=== PATIENT | male | born 1995 | race Caucasian/White ===

== ENCOUNTER 2019-03-05 16:44 | Emergency (ER) | payer SELFPAY ==
[2019-03-05 16:35] VITALS: BP 150/82; PULSE 80; RESP 20; O2SAT 98; BMI 31.4
[2019-03-05 16:47] VITALS: TEMP 36.4
--- NOTE | 2019-03-05 16:50 | PC.NURSE ---
pt appears to be under the influence of alcohol. nurse asked pt and pt denies any substance use. pt is very slow to respond/answer questions but still answers appropriately.
--- NOTE | 2019-03-05 16:51 | CTR_ITS ---
PROCEDURE INFORMATION: Exam: CT Head Without Contrast Exam date and time: 03/05/2019 5:09 PM Age: 23 years old Clinical indication: Pain; Headache; Migraine; Aura effect not specified; Other: Unknown TECHNIQUE: Imaging protocol: Computed tomography of the head without contrast. Total DLP: 869.63 mGy-cm Radiation optimization: All CT scans at this facility use at least one of these dose optimization techniques: automated exposure control; mA and/or kV adjustment per patient size (includes targeted exams where dose is matched to clinical indication); or iterative reconstruction. COMPARISON: No relevant prior studies available. FINDINGS: Brain: There are prominent perivascular spaces inferior to the lentiform nuclei. Ventricles: Normal. No ventriculomegaly. Bones/joints: Unremarkable. No acute fracture. Sinuses: Visualized sinuses are unremarkable. No fluid levels. Mastoid air cells: Visualized mastoid air cells are well aerated. Soft tissues: Unremarkable. CT/CT head wo con* [id number] IMPRESSION: No acute intracranial findings. Radiation Dose CTDIVOL = (mGy): DLP = 869.63 (mGy-cm)
--- NOTE | 2019-03-05 16:51 | XRR_ITS ---
PROCEDURE INFORMATION: Exam: XR Chest, 1 View Exam date and time: 03/05/2019 5:17 PM Age: 23 years old Clinical indication: Patient HX: Cough x2 days, PT is a current smoker, PT denies surg HX, PT denies HX of CA. TECHNIQUE: Imaging protocol: XR of the chest Views: 1 view. COMPARISON: CR Chest 2 views* [id number] 08/29/2018 3:42 PM FINDINGS: Lungs: Unremarkable. No consolidation. Pleural space: Unremarkable. No pleural effusion. No pneumothorax. Heart/Mediastinum: Unremarkable. No cardiomegaly. Bones/joints: Unremarkable. XR/XR chest 1V portable [id number] IMPRESSION: No acute findings.
--- NOTE | 2019-03-05 16:56 | ED_ITS ---
Entered by Stephon Warner LPN, acting as scribe for Sugar Sandhu DO HPI - Headache General: Chief Complaint: Headache Stated Complaint: migraine Time Seen by Provider: 03/05/19 16:51 Source: patient Mode of arrival: ambulatory Limitations: no limitations History of Present Illness: HPI Narrative: 23 yo male with h/o migraines presents via EMS c/o abrupt onset headache that started this evening. He reports this is worse than his usual migraine, but is similar. He has been out in the cold this evening, states he has just been walking around. Also reporting anxious shakes . EMS reports they picked him up that police station, he had walked there. 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.) Onset description: suddenly Location: generalized Severity: moderate Quality & Timing: similar to previous headaches Relieving factors: nothing Associated symptoms: Deny chest pain, fever(s), malaise, nausea, rash or vomiting Review of Systems Const: Reports: chills; Denies: fever, change in appetite or malaise Eyes: Denies: change in vision, blurry vision, eye discharge or eye redness ENMT: Denies: throat pain, uvular edema, painful swallowing, mouth pain, dental pain, nasal congestion or facial/sinus pain Card: Denies: chest pain, irregular heart rhythm, swelling of feet/ankles, shortness of breath on exertion, shortness of breath when lying down or leg pain with exertion Resp: Denies: shortness of breath, productive cough, wheezing or coughing up blood GI: Denies: abdominal pain, nausea, vomiting, diarrhea, constipation or fecal incontinence : Denies: flank pain, painful urination, urinary frequency, urinary urgency or urinary hesitancy Musc: Denies: neck pain, back pain, extremity pain or extremity swelling Skin/Breast: Reports: other (reddened skin to nose and hands- has been out in the cold); Denies: rash, itching, redness, yellow skin or dry skin Neuro: Reports: headache; Denies: numbness in extremities, weakness in extremities, changes in sensation, lack of coordination or difficulty walking Psych: Denies: anxiety, depression, mood swings, panic attacks, sleeping less, suicidal ideation or homicidal ideation Endo: Denies: excessive urination, excessive thirst or tired all the time Micky/Lymph: Denies: easy bruising, petechiae or enlarged lymph nodes All/Imm: Denies: hives, throat swelling, facial swelling, acute wheezing or se asonal allergies PFSH ED PFSH: Statuses (acute, chronic, etc) shown below reflect problem list status as previously entered and may not be historically accurate Social History Smoking and tobacco status: current every day smoker Physical Exam Const: COMMON NORMALS: no apparent distress, oriented x3, no limitations, healthy appearing, alert and well nourished GENERAL APPEARANCE: cooperative, comfortable, well kempt and well developed ORIENTATION/CONSCIOUSNESS: Yes awake, Yes oriented to person, Yes oriented to place and Yes oriented to time HENMT: COMMON NORMALS: normocephalic, head/scalp atraumatic, hearing grossly normal bilaterally, external ears normal, EAC's normal, TM's normal bilaterally, external nose normal, nasal mucous membranes and turbinates normal, moist oral mucous membranes, oropharynx normal, dentition normal and gingiva normal HEAD & SCALP: normal to inspection, normocephalic and atraumatic FACE & SINUS: normal facial exam NOSE: external nose normal and nasal mucous membranes and turbinates normal EXTERNAL EAR: Yes external ears normal EXTERNAL AUDITORY CANAL: EAC's normal TYMPANIC MEMBRANE: TM's normal bilaterally MOUTH: oral and palatal mucosa normal, lip normal and tongue normal THROAT: no uvular edema Eye: COMMON NORMALS: PERRL, EOMs intact bilaterally, conjunctivae normal, no scleral icterus and normal visual parker by confrontation GENERAL EYE: normal appearance of both eyes and normal light reflex VISUAL ACUITY: Yes acuity normal ALIGNMENT: Yes alignment normal PERIORBITAL: periorbital findings normal EYELID: eyelids normal CONJUNCTIVA: Yes conjunctivae normal SCLERA: sclerae normal PUPIL: Yes PERRL and Yes accommodation reflex normal DIRECT OPHTHALMOSCOPY: Yes normal light reflex Neck/C-Spine: COMMON NORMALS: full ROM, no lymphadenopathy, supple, no meningeal signs and no JVD GENERAL: Yes normal visual inspection CAROTIDS: Yes normal carotid upstroke CERVICAL SPINE: Yes cervical ROM normal Lymph: LYMPHATIC: no lymphadenopathy noted Chest: COMMONS NORMALS: inspection of chest normal CHEST: Yes symmetrical chest wall rise Resp: COMMON NORMALS: normal respiratory effort, no retractions, no use of accessory muscles and clear to auscultation bilaterally EFFORT & INSPECTION: Yes able to speak in complete sentences and Yes symmetric chest movement AUSCULTATION: clear to auscultation bilaterally Cardio: COMMON NORMALS: no JVD, regular rate, regular rhythm, S1 normal heart sound, S2 normal heart sound, no murmurs and peripheral pulses 2+ throughout RATE: regular rate RHYTHM: regular rhythm HEART SOUNDS: S1 normal and S2 normal PERIPHERAL PULSES: pulses 2+ throughout GI: COMMON NORMALS: normal to inspection, nondistended, normoactive bowel sounds and non-tender : COMMON NORMALS: Yes no CVA tenderness BLADDER/KIDNEY EXAM: Yes no CVA tenderness Back/Pelvis: COMMON NORMALS: no CVA tenderness, thoracic and lumbar spine normal to inspection, no thoracic nor lumbar tenderness and thoraco-lumbar ROM normal Extremity: COMMON NORMALS: normal to inspection, full ROM, normal capillary refill, no calf tenderness and no pedal edema Neuro: COMMON NORMALS: oriented x3, CN's II-XII intact bilaterally, moves all extremities, no focal motor deficits, no sensory deficits noted and gait normal SENSORIUM/ORIENTATION: Yes alert, Yes oriented to person, Yes oriented to place and Yes oriented to time MENINGEAL SIGNS: Yes no meningeal signs SPEECH: speech normal GAIT: Yes normal gait MOTOR EXAM: strength 5/5 throughout, no pronator drift and no tremor noted Psych: COMMON NORMALS: mental status grossly normal, thought process normal, cooperative, affect normal, speech normal and activity/motor behavior normal APPEARANCE: Yes well kempt SPEECH: Yes normal speech THOUGHT PROCESS: normal thought process THOUGHT CONTENT: Yes normal thought content INSIGHT: insight good Skin: COMMON NORMALS: no rashes or lesions noted, no wounds, skin turgor normal and no jaundice NARRATIVE SKIN EXAM: nose and hands noted to be red, no break in skin, likely d/t walking out in the cold. GENERAL SKIN EXAM: no rashes or lesions noted and turgor normal Course ED course: improved with medications will dc home or to a friends house f applicable, if he needs a retirement we will attempt to find him retirement Vital Signs: Vital signs: Vital Signs Temperature 97.6 F 03/05/19 16:47 Pulse Rate 80 03/05/19 16:35 Respiratory Rate 20 H 03/05/19 16:35 Blood Pressure 150/82 01/11/20 16:35 Pulse Oximetry 98 03/05/19 16:35 MDM - Headache Lab Data: Attestation: I reviewed the patient's lab results. Labs: Lab Results 03/05/19 03/05/19 Range/Units 17:04 17:04 WBC 13.2 H (4.0-10.0) 10^3/ uL RBC 5.26 (4.1-5.3) 10^6/u L Hgb 15.4 (11.7-16.6) g/dL Hct 45.3 (42.0-52.0) % MCV 86.1 (80-94) fL MCH 29.3 (28.0-34.0) pg MCHC 34.0 (30.0-36.0) g/dL RDW 12.8 (12.1-15.1) % Plt Count 324 (130-400) 10^3/c mm MPV 10.0 (7.4-10.4) fL Neut % (Auto) 55.5 % Lymph % (Auto) 33.3 % [place] % (Auto) 7.1 % Eos % (Auto) 3.4 % Baso % (Auto) 0.4 % Neut # (Auto) 7.3 (1.8-7.7) 10^3/u L Lymph # (Auto) 4.4 (0.8-4.8) 10^3/u L [place] # (Auto) 0.9 (0.2-0.9) 10^3/u L Eos # (Auto) 0.5 (0.0-0.8) 10^3/u L Baso # (Auto) 0.1 (0.0-0.1) 10^3/u L Nucleated RBC % (a uto) 0 % Nucleated RBCs # 0.0 /100WBC Sodium 136 (136-145) mmol/L Potassium 4.0 (3.5-5.1) mmol/L Chloride 95 L (98-107) mmol/L Carbon Dioxide 28 (22-29) mmol/L Anion Gap 17.0 (5-19) BUN 14 (6-20) mg/dL Creatinine 0.8 (0.7-1.2) mg/dL GFR Calculation 118.8 (90-130) mL/min Glucose 111 H (74-109) mg/dL Calcium 10.5 H (8.6-10.0) mg/Dl Total Bilirubin 0.7 (0.15-1.2) mg/dL AST 23 (0-40) U/L ALT 24 (0-41) U/L Alkaline Phosphata se 106 (40-130) IU/L Total Protein 8.2 (6.6-8.7) g/dL Albumin 5.1 (3.5-5.2) g/dL Globulin 3.1 (1.3-4.6) g/dL Discharge Plan Discharge Patient Disposition: Home, Self-Care Clinical Impression: Migraine Qualifiers: Migraine type: without aura Status migrainosus presence: without status migrainosus Intractability: not intractable Qualified Code(s): G43.009 - Migraine without aura, not intractable, without status migrainosus Condition: Stable Prescriptions: No Action No Known Home Medications RF: 0 Discharge Diet: Usual diet Discharge Activity: Resume usual activity Patient Instructions: Acute Headache (ED) Coding Level of Care Code ED [employer] Commissioner for Ethan Olvera Exam Problem Focused The documentation recorded by the Timmy houston Dani Elizabeth, LPN, accurately reflects the service I personally performed and the decisions made by , Sugar Sandhu DO
[2019-03-05 17:10] LABS: Basophils # 0.1 10^3/uL (0.0-0.1); Basophils % 0.4 %; Eosinophils # 0.5 10^3/uL (0.0-0.8); Eosinophils % 3.4 %; Hematocrit 45.3 % (42.0-52.0); Hemoglobin 15.4 g/dL (11.7-16.6); Lymphocytes # 4.4 10^3/uL (0.8-4.8); Lymphocytes % 33.3 %; Mean Corpuscular Hemoglobin 29.3 pg (28.0-34.0); Mean Corpuscular Volume 86.1 fL (80-94); Monocytes # 0.9 10^3/uL (0.2-0.9); Monocytes % 7.1 %; Neutrophils # 7.3 10^3/uL (1.8-7.7); Neutrophils % 55.5 %; Nucleated Red Blood Cells % 0 %; Platelet Count 324 10^3/cmm (130-400); Red Blood Count 5.26 10^6/uL (4.1-5.3); Red Cell Distribution Width 12.8 % (12.1-15.1); White Blood Count 13.2 10^3/uL (4.0-10.0)
--- NOTE | 2019-03-05 17:17 | PC.NURSE ---
pt transported to ct by stretcher with tech
[2019-03-05 17:26] LABS: Alanine Aminotransferase 24 U/L (0-41); Albumin Level 5.1 g/dL (3.5-5.2); Alkaline Phosphatase 106 IU/L (40-130); Aspartate Amino Transferase 23 U/L (0-40); Blood Urea Nitrogen 14 mg/dL (6-20); Calcium 10.5 mg/Dl (8.6-10.0); Carbon Dioxide 28 mmol/L (22-29); Chloride 95 mmol/L (98-107); Globulin 3.1 g/dL (1.3-4.6); Glomerular Filtration Rate 118.8 mL/min (90-130); Glucose 111 mg/dL (74-109); Sodium 136 mmol/L (136-145); Total Bilirubin 0.7 mg/dL (0.15-1.2); Total Protein 8.2 g/dL (6.6-8.7)
[2019-03-05] MEDS: metoclopramide 5 mg/mL SDV 2 mL 10 MG IV (17:54)
[2019-03-05] MEDS: ketorolac 30 mg/mL INJ IVP (17:54)
[2019-03-05] MEDS: diphenhydrAMINE 50 mg/mL SDV 1mL IVP (17:55)
[2019-03-05] MEDS: sodium chloride 0.9% 1,000 ML 999 ML IV (17:55)
[2019-03-05 18:37] VITALS: BP 135/75; PULSE 96; RESP 20
== END 2019-03-05 18:44 | disposition home or self-care (01) ==
LOC: ER 18:48
PROVIDERS: Emergency Provider Emergency Medicine
DX: G43.009 Migraine without aura, not intractable, without status migrainosus (principal); F17.210 Nicotine dependence, cigarettes, uncomplicated
CPT/HCPCS: 36415; 70450; 71045; 80053; 85025; 96360; 96374; 99281; A9270; J1200; J1885; J2765; J7030

== ENCOUNTER 2019-03-06 17:37 | Emergency (ER) | payer SELFPAY ==
[2019-03-06 17:44] VITALS: BP 146/81; PULSE 89; RESP 16; O2SAT 99
--- NOTE | 2019-03-06 18:21 | ED_ITS ---
Entered by Stephon Warner LPN, acting as scribe for Joseph Han DO Mar 06, 2019 17:37 HPI - General Adult General: Chief complaint: General Medical Stated complaint: GENERAL SICKNESS Time Seen by Provider: 03/06/19 18:21 PFSH ED PFSH: Statuses (acute, chronic, etc) shown below reflect problem list status as previously entered and may not be historically accurate Social History Smoking and tobacco status: current every day smoker Course Vital Signs: Vital signs: Vital Signs Pulse Rate 89 03/06/19 17:44 Respiratory Rate 16 03/06/19 17:44 Blood Pressure 146/81 03/06/19 17:44 Pulse Oximetry 99 03/06/19 17:44 Discharge Plan Discharge Prescriptions: No Action Unable to Assess RF: 0 Coding Level of Care Code 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
--- NOTE | 2019-03-06 18:22 | ED_ITS ---
Entered by Stephon Warner LPN, acting as scribe for GuilleJoseph DO Jovon Mar 06, 2019 17:37 HPI - General Adult General: Chief complaint: General Medical Stated complaint: GENERAL SICKNESS Time Seen by Provider: 03/06/19 18:21 Source: patient Mode of arrival: EMS Limitations: no limitations History of Present Illness: HPI narrative: 23 yo male presents stating he is here because his hands are cold and he is getting nervous convulsions everywhere . He reports fever, it was up there, I can feel it . He reports cough. He was brought in by EMS, picked up at the police station, was not in custody. When asked if he has been depressed he states I am feeling down due to some rehtorical stuff . He as been worried. He denies thoughts of harming himself or others. He states he has had out of body experiences . He does smoke cigarettes. Denies alcohol or drug use. Onset (ago): day(s) (onset today) Severity: mild Associated symptoms: Deny chest pain, confusion, dyspnea, headache(s), nausea, rash, palpitations or vomiting Review of Systems Const: Denies: fever or chills Eyes: Denies: change in vision or blurry vision ENMT: Denies: painful swallowing, swelling of lips/tongue, bleeding gums, dental pain, Change in hearing, nose bleeds, post nasal drip or facial/sinus pain Card: Denies: chest pain, palpitations, irregular heart rhythm, edema, swelling of feet/ankles, shortness of breath on exertion or shortness of breath when lying down Resp: Denies: shortness of breath, productive cough, non-productive cough or wheezing GI: Denies: abdominal pain, nausea, vomiting, rectal pain, blood in stool or black tarry stool : Denies: difficulty urinating, painful urination, urinary frequency, urinary urgency or blood in urine Musc: Denies: neck pain, back pain, redness or joint warmth Skin/Breast: Denies: rash, itching or redness Neuro: Denies: headache, dizziness, vertigo, confusion or seizure-like activity Psych: Reports: depression; Denies: anxiety, suicidal ideation or homicidal ideation PFSH ED PFSH: Statuses (acute, chronic, etc) shown below reflect problem list status as previously entered and may not be historically accurate Social History Smoking and tobacco status: current every day smoker Physical Exam Const: COMMON NORMALS: alert GENERAL APPEARANCE: well developed ORIENTATION/CONSCIOUSNESS: Yes awake, Yes oriented to person, Yes oriented to place and Yes oriented to time HENMT: COMMON NORMALS: normocephalic, external ears normal, external nose normal and moist oral mucous membranes HEAD & SCALP: normocephalic; no scalp tenderness FACE & SINUS: normal facial exam NOSE: external nose normal and no nasal discharge EXTERNAL EAR: Yes external ears normal MOUTH: tongue normal THROAT: posterior oropharynx normal; no peritonsillar mass Eye: COMMON NORMALS: PERRL, EOMs intact bilaterally and conjunctivae normal EYELID: eyelids normal CONJUNCTIVA: Yes conjunctivae normal PUPIL: Yes PERRL Neck/C-Spine: COMMON NORMALS: full ROM GENERAL: No tracheal deviation CERVICAL SPINE: Yes normal cervical lordosis, No cervical spine tenderness, No step off deformity, No paracervical muscle tenderness and No paracervical muscle spasm Chest: COMMONS NORMALS: inspection of chest normal CHEST: Yes symmetrical chest wall rise and No tenderness Resp: COMMON NORMALS: clear to auscultation bilaterally EFFORT & INSPECTION: No tachypneic, No respiratory distress, No retractions, No uses accessory muscles and No tracheal deviation AUSCULTATION: clear to auscultation bilaterally, no rhonchi, no wheezes and lung sounds not diminished Cardio: COMMON NORMALS: regular rate and regular rhythm RATE: regular rate RHYTHM: regular rhythm HEART SOUNDS: no murmurs PERIPHERAL PULSES: radial pulses present GI: INSPECTION: No abdominal distension AUSCULTATION: No hyperactive bowel sounds and No hypoactive bowel sounds PALPATION: No tender, No guarding and No rigid PERCUSSION: no dullness to percussion and no tympanic to percussion : COMMON NORMALS: Yes no CVA tenderness BLADDER/KIDNEY EXAM: Yes no CVA tenderness Back/Pelvis: COMMON NORMALS: no CVA tenderness PELVIS: Yes no pain with anterior-posterior compression and Yes no pain with lateral compression Neuro: SENSORIUM/ORIENTATION: Yes alert, Yes oriented to person, Yes oriented to place and Yes oriented to time Psych: COMMON NORMALS: mental status grossly normal and speech normal SPEECH: Yes normal speech OTHER: obvious loose associations Skin: COMMON NORMALS: no rashes or lesions noted GENERAL SKIN EXAM: no rashes or lesions noted Course ED course: Still a bit unclear why this patient presented to the emergency department. He has some loose associations. This does not appear to be due to substance abuse. I suspect he has organic psychiatric disease. His laboratory is not terribly abnormal. His urine drug and alcohol screens are negative. He does have some very mild cold exposure to his hands. I suspect he is homeless. He was given food. He will be discharged. He denied hallucinations, thoughts of harming himself or others Vital Signs: Vital signs: Vital Signs Temperature 97.9 F 03/06/19 20:42 Pulse Rate 91 03/06/19 20:47 Respiratory Rate 16 03/06/19 20:47 Blood Pressure 126/69 03/06/19 20:47 Pulse Oximetry 97 03/06/19 20:47 MDM - General Adult Lab Data: Labs: Lab Results 03/06/19 03/06/19 03/06/19 Range/Units 18:46 18:46 19:40 WBC 10.2 H (4.0-10.0) 10^3/ uL RBC 5.04 (4.1-5.3) 10^6/u L Hgb 14.8 (11.7-16.6) g/dL Hct 43.4 (42.0-52.0) % MCV 86.1 (80-94) fL MCH 29.4 (28.0-34.0) pg MCHC 34.1 (30.0-36.0) g/dL RDW 12.9 (12.1-15.1) % Plt Count 277 (130-400) 10^3/c mm MPV 10.2 (7.4-10.4) fL Neut % (Auto) 58.6 % Lymph % (Auto) 32.2 % [place] % (Auto) 6.4 % Eos % (Auto) 2.3 % Baso % (Auto) 0.4 % Neut # (Auto) 6.0 (1.8-7.7) 10^3/u L Lymph # (Auto) 3.3 (0.8-4.8) 10^3/u L [place] # (Auto) 0.7 (0.2-0.9) 10^3/u L Eos # (Auto) 0.2 (0.0-0.8) 10^3/u L Baso # (Auto) 0.0 (0.0-0.1) 10^3/u L Nucleated RBC % (a uto) 0 % Nucleated RBCs # 0.0 /100WBC Sodium 148 H (136-145) mmol/L Potassium 4.2 (3.5-5.1) mmol/L Chloride 105 (98-107) mmol/L Carbon Dioxide 27 (22-29) mmol/L Anion Gap 20.2 H (5-19) BUN 13 (6-20) mg/dL Creatinine 0.9 (0.7-1.2) mg/dL GFR Calculation 103.7 (90-130) mL/min Glucose 88 (74-109) mg/dL Calcium 9.9 (8.6-10.0) mg/Dl Total Bilirubin 0.6 (0.15-1.2) mg/dL AST 19 (0-40) U/L ALT 20 (0-41) U/L Alkaline Phosphata se 96 (40-130) IU/L Creatine Kinase 110 (39-308) U/L Total Protein 7.4 (6.6-8.7) g/dL Albumin 4.7 (3.5-5.2) g/dL Globulin 2.7 (1.3-4.6) g/dL Urine Color Yellow (Yellow) Urine Appearance Clear (CLEAR) Urine pH 5 (5-7) Ur Specific Gravit y 1.025 (1.005-1.030) Urine Protein Neg (Negative) Urine Glucose (UA) Norm (Normal) Urine Ketones Negative (Negative) Urine Occult Blood Neg (Negative) Urine Nitrate Negative (Negative) Urine Bilirubin Neg (NEGATIVE) Urine Urobilinogen Norm (Negative) mg/dL Ur Leukocyte Carmina ase Negative (Negative) Salicylates < 0.3 L (3-10) mg/dL Urine Opiates Scre en (Negative) ng/mL Acetaminophen < 5.0 L (10-30) ug/mL Ur Barbiturates Sc reen (Negative) ng/mL Ur Phencyclidine S crn (Negative) ng/mL Ur Amphetamines Sc reen (Negative) ng/mL U Benzodiazepines Scrn (Negative) ng/mL Urine Cocaine Scre en (Negative) ng/mL U Marijuana (THC) Screen (Negative) ng/mL Ethyl Alcohol < 10 (0-10) mg/dL 03/06/19 Range/Units 19:40 WBC (4.0-10.0) 10^3/ uL RBC (4.1-5.3) 10^6/u L Hgb (11.7-16.6) g/dL Hct (42.0-52.0) % MCV (80-94) fL MCH (28.0-34.0) pg MCHC (30.0-36.0) g/dL RDW (12.1-15.1) % Plt Count (130-400) 10^3/c mm MPV (7.4-10.4) fL Neut % (Auto) % Lymph % (Auto) % [place] % (Auto) % Eos % (Auto) % Baso % (Auto) % Neut # (Auto) (1.8-7.7) 10^3/u L Lymph # (Auto) (0.8-4.8) 10^3/u L [place] # (Auto) (0.2-0.9) 10^3/u L Eos # (Auto) (0.0-0.8) 10^3/u L Baso # (Auto) (0.0-0.1) 10^3/u L Nucleated RBC % (a uto) % Nucleated RBCs # /100WBC Sodium (136-145) mmol/L Potassium (3.5-5.1) mmol/L Chloride (98-107) mmol/L Carbon Dioxide (22-29) mmol/L Anion Gap (5-19) BUN (6-20) mg/dL Creatinine (0.7-1.2) mg/dL GFR Calculation (90-130) mL/min Glucose (74-109) mg/dL Calcium (8.6-10.0) mg/Dl Total Bilirubin (0.15-1.2) mg/dL AST (0-40) U/L ALT (0-41) U/L Alkaline Phosphata se (40-130) IU/L Creatine Kinase (39-308) U/L Total Protein (6.6-8.7) g/dL Albumin (3.5-5.2) g/dL Globulin (1.3-4.6) g/dL Urine Color (Yellow) Urine Appearance (CLEAR) Urine pH (5-7) Ur Specific Gravit y (1.005-1.030) Urine Protein (Negative) Urine Glucose (UA) (Normal) Urine Ketones (Negative) Urine Occult Blood (Negative) Urine Nitrate (Negative) Urine Bilirubin (NEGATIVE) Urine Urobilinogen (Negative) mg/dL Ur Leukocyte Carmina ase (Negative) Salicylates (3-10) mg/dL Urine Opiates Scre en Negative (Negative) ng/mL Acetaminophen (10-30) ug/mL Ur Barbiturates Sc reen Negative (Negative) ng/mL Ur Phencyclidine S crn Negative (Negative) ng/mL Ur Amphetamines Sc reen Negative (Negative) ng/mL U Benzodiazepines Scrn Negative (Negative) ng/mL Urine Cocaine Scre en Negative (Negative) ng/mL U Marijuana (THC) Screen Negative (Negative) ng/mL Ethyl Alcohol (0-10) mg/dL Discharge Plan Discharge Patient Disposition: Home, Self-Care Clinical Impression: Chilblain Qualifiers: Encounter type: initial encounter Qualified Code(s): T69.1XXA - Chilblains, initial encounter Condition: Stable Prescriptions: No Action Unable to Assess RF: 0 Discharge Orders: Discharge Order (Routine); Ordered 03/06/19 Ordered By: Joseph Han Discharge Diet: Usual diet Discharge Activity: Resume usual activity Patient Instructions: Acute Hypothermia (ED) Activity Restrictions/Additional Instructions: You should attempt to find a warm environment to avoid further cold exposure. 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
[2019-03-06 18:52] LABS: Basophils % 0.4 %; Eosinophils # 0.2 10^3/uL (0.0-0.8); Eosinophils % 2.3 %; Hematocrit 43.4 % (42.0-52.0); Hemoglobin 14.8 g/dL (11.7-16.6); Lymphocytes # 3.3 10^3/uL (0.8-4.8); Lymphocytes % 32.2 %; Mean Corpuscular HGB Conc 34.1 g/dL (30.0-36.0); Mean Corpuscular Hemoglobin 29.4 pg (28.0-34.0); Mean Corpuscular Volume 86.1 fL (80-94); Mean Platelet Volume 10.2 fL (7.4-10.4); Monocytes # 0.7 10^3/uL (0.2-0.9); Monocytes % 6.4 %; Neutrophils % 58.6 %; Nucleated Red Blood Cells % 0 %; Platelet Count 277 10^3/cmm (130-400); Red Blood Count 5.04 10^6/uL (4.1-5.3); Red Cell Distribution Width 12.9 % (12.1-15.1); White Blood Count 10.2 10^3/uL (4.0-10.0)
[2019-03-06 19:12] LABS: Alanine Aminotransferase 20 U/L (0-41); Albumin Level 4.7 g/dL (3.5-5.2); Alkaline Phosphatase 96 IU/L (40-130); Anion Gap 20.2 (5-19); Aspartate Amino Transferase 19 U/L (0-40); Blood Urea Nitrogen 13 mg/dL (6-20); Calcium 9.9 mg/Dl (8.6-10.0); Carbon Dioxide 27 mmol/L (22-29); Chloride 105 mmol/L (98-107); Creatine Phosphokinase 110 U/L (39-308); Globulin 2.7 g/dL (1.3-4.6); Glomerular Filtration Rate 103.7 mL/min (90-130); Glucose 88 mg/dL (74-109); Potassium 4.2 mmol/L (3.5-5.1); Sodium 148 mmol/L (136-145); Total Bilirubin 0.6 mg/dL (0.15-1.2); Total Protein 7.4 g/dL (6.6-8.7)
--- NOTE | 2019-03-06 19:19 | PC.NURSE ---
Introduced self to patient and initiated vital signs. Pt states that he is having migraines, abdominal issues, and feet issues. Pt states that he goes by the name of Naveed. Pt responding slowly to questions but is speaking clearly.
[2019-03-06 19:21] LABS: Acetaminophen < 5.0 ug/mL (10-30); Alcohol Level < 10 mg/dL (0-10); Salicylate < 0.3 mg/dL (3-10)
[2019-03-06 19:47] LABS: Add Urine Microscopic? NO
[2019-03-06 19:48] VITALS: BP 133/82; PULSE 68; RESP 16; O2SAT 100
[2019-03-06 20:01] LABS: Bilirubin Urine Neg (NEGATIVE); Blood Urine Neg (Negative); Glucose Urine UA Norm (Normal); Ketones Urine Negative (Negative); Leukocyte Esterase Urine Negative (Negative); Nitrate Urine Negative (Negative); Protein Urine Neg (Negative); Specific Gravity, Urine 1.025 (1.005-1.030); Urine Appearance Clear (CLEAR); Urine Color Yellow (Yellow); Urobilinogen Urine Norm (Negative); pH Urine 5 (5-7)
[2019-03-06 20:12] LABS: Amphetamines Screen Urine Negative (Negative); Barbiturates Screen Urine Negative (Negative); Benzodiazepines Screen Urine Negative (Negative); Cocaine Screen Urine Negative (Negative); Opiate Screen Urine Negative (Negative); PCP Screen Urine Negative (Negative); THC Screen Urine Negative (Negative)
[2019-03-06 20:42] VITALS: BP 126/69; PULSE 68; RESP 18; TEMP 36.6; O2SAT 100
[2019-03-06 20:47] VITALS: BP 126/69; PULSE 91; RESP 16; O2SAT 97
== END 2019-03-06 20:50 | disposition home or self-care (01) ==
PROVIDERS: Emergency Provider Emergency Medicine
DX: T69.1XXA Chilblains, initial encounter (principal); F17.210 Nicotine dependence, cigarettes, uncomplicated
CPT/HCPCS: 80053; 80307; 81003; 82550; 85025; 99281

== ENCOUNTER 2019-03-14 07:51 | Inpatient (IN) | payer SELFPAY ==
[2019-03-14] VITALS (11 sets, daily range): BP systolic 119–146; BP diastolic 79–94; PULSE 74–107; RESP 16–20; TEMP 36.3–36.6; O2SAT 97–100; BMI 26.9
--- NOTE | 2019-03-14 08:03 | ED_ITS ---
Entered by Nilda Vaughn, acting as scribe for Zev Batista DO HPI - Abdominal Pain General: Chief Complaint: General Medical Stated Complaint: abd pain, shaking Time Seen by Provider: 03/14/19 07:56 History of Present Illness: HPI narrative: 23 yo male presnets with abd pain and shaking. Pt states that he is cough. Pt was found outside of Dr. Olson's office in the bushes. Pt seems lethargic. Pt states that he smoked marijuana last night. Pt states that he abd pain has been present for 2 days, he had chest pain that is worsened when palpated. Associated Symptoms: Denies chills, coffee ground emesis, constipation, GI cramping, diarrhea, dysuria, fever(s), heartburn, hematochezia, hematuria, hematemesis, melena, nausea, syncope and vomiting Review of Systems Const: Reports: malaise; Denies: fever, chills, body aches, fatigue or night sweats Eyes: Denies: change in vision or blurry vision ENMT: Denies: throat pain, oral sores/lesions, dental pain, nasal discharge or nasal congestion Card: Reports: chest pain; Denies: palpitations, irregular heart rhythm, edema, syncope, shortness of breath on exertion, shortness of breath when lying down or leg pain with exertion Resp: Denies: shortness of breath, productive cough, non-productive cough or wheezing GI: Reports: abdominal pain; Denies: nausea, vomiting, vomiting blood, coffee grounds in vomit, difficulty swallowing, heartburn/indigestion, diarrhea, constipation, cramping, blood in stool or black tarry stool : Denies: flank pain, difficulty urinating, painful urination, urinary frequency, urinary urgency, urinary incontinence or blood in urine Musc: Denies: joint warmth Skin/Breast: Denies: rash, itching or redness Neuro: Denies: headache, numbness in extremities, weakness in extremities, changes in sensation, lack of coordination, difficulty walking, frequent falls, dizziness, vertigo or confusion Psych: Denies: anxiety, depression, loss of interest, visual hallucinations, auditory hallucinations, suicidal ideation or homicidal ideation Endo: Denies: excessive urination, excessive thirst, tired all the time or cold intolerance Micky/Lymph: Denies: easy bruising, easy bleeding, petechiae, enlarged lymph nodes or tender lymph nodes All/Imm: Denies: acute wheezing PFSH ED PFSH: Statuses (acute, chronic, etc) shown below reflect problem list status as previously entered and may not be historically accurate Medical History Depression (Acute) Social History Smoking and tobacco status: current every day smoker Physical Exam Const: COMMON NORMALS: average body habitus GENERAL APPEARANCE: cooperative, comfortable, well developed and lethargic NUTRITIONAL APPEARANCE: not obese ORIENTATION/CONSCIOUSNESS: Yes awake and Yes lethargic HENMT: COMMON NORMALS: normocephalic, head/scalp atraumatic, EAC's normal, TM's normal bilaterally, external nose normal, moist oral mucous membranes and oropharynx normal HEAD & SCALP: normocephalic and atraumatic NOSE: external nose normal EXTERNAL AUDITORY CANAL: EAC's normal TYMPANIC MEMBRANE: TM's normal bilaterally MOUTH: oral and palatal mucosa normal, lip normal and tongue normal THROAT: posterior oropharynx normal and tonsils normal Eye: COMMON NORMALS: PERRL, EOMs intact bilaterally, conjunctivae normal and no scleral icterus CONJUNCTIVA: Yes conjunctivae normal PUPIL: Yes PERRL Neck/C-Spine: COMMON NORMALS: full ROM, no lymphadenopathy, supple, no meningeal signs and thyroid normal THYROID: thyroid normal and asymmetrical Lymph: LYMPHATIC: no lymphadenopathy noted Resp: COMMON NORMALS: normal respiratory effort, no retractions, no use of accessory muscles and clear to auscultation bilaterally AUSCULTATION: clear to auscultation bilaterally Cardio: COMMON NORMALS: regular rate and regular rhythm RATE: regular rate RHYTHM: regular rhythm HEART SOUNDS: no murmurs GI: COMMON NORMALS: normal to inspection, nondistended, normoactive bowel sounds, soft to palpation and no hepatosplenomegaly PALPATION: Yes soft and Yes no hepatosplenomegaly : COMMON NORMALS: Yes no CVA tenderness BLADDER/KIDNEY EXAM: Yes no CVA tenderness Back/Pelvis: COMMON NORMALS: no CVA tenderness LUMBAR SPINE/LOWER BACK: Yes normal to inspection Extremity: COMMON NORMALS: no clubbing, cyanosis or edema, no calf tenderness and no pedal edema Neuro: SENSORIUM/ORIENTATION: Yes lethargic MENINGEAL SIGNS: Yes no meningeal signs Psych: APPEARANCE: Yes unkempt and Yes disheveled ATTITUDE: Yes withdrawn and Yes evasive ACTIVITY/MOTOR BEHAVIOR: Yes psychomotor slowing, Yes disorganized and Yes avoids eye contact SPEECH: Yes minimal, Yes slow and Yes delayed MOOD & AFFECT: Yes depressed mood, Yes apathetic, Yes flat affect and Yes blunted affect THOUGHT PROCESS: confused THOUGHT CONTENT: No suicidality and No homicidality Skin: COMMON NORMALS: no rashes or lesions noted and skin turgor normal GENERAL SKIN EXAM: no rashes or lesions noted and turgor normal Course Vital Signs: Vital signs: Vital Signs Temperature 97.8 F 03/16/19 06:00 Pulse Rate 56 L 03/16/19 06:00 Respiratory Rate 18 03/16/19 06:00 Blood Pressure 103/58 03/16/19 06:00 Pulse Oximetry 99 03/16/19 06:00 MDM - Abdominal Pain Lab Data: Labs: Lab Results 03/14/19 03/14/19 03/14/19 Range/Units 08:02 08:02 08:02 WBC 19.7 H (4.0-10.0) 10^3/ uL RBC 5.42 H (4.1-5.3) 10^6/u L Hgb 16.0 (11.7-16.6) g/dL Hct 46.5 (42.0-52.0) % MCV 85.8 (80-94) fL MCH 29.5 (28.0-34.0) pg MCHC 34.4 (30.0-36.0) g/dL RDW 12.9 (12.1-15.1) % Plt Count 331 (130-400) 10^3/c mm MPV 10.2 (7.4-10.4) fL Neut % (Auto) 73.7 % Lymph % (Auto) 19.8 % Rowan % (Auto) 4.3 % Eos % (Auto) 1.5 % Baso % (Auto) 0.3 % Neut # (Auto) 14.5 H (1.8-7.7) 10^3/u L Lymph # (Auto) 3.9 (0.8-4.8) 10^3/u L Rowan # (Auto) 0.9 (0.2-0.9) 10^3/u L Eos # (Auto) 0.3 (0.0-0.8) 10^3/u L Baso # (Auto) 0.1 (0.0-0.1) 10^3/u L Nucleated RBC % (a uto) 0 % Nucleated RBCs # 0.0 /100WBC D-Dimer 0.35 (0-0.59) ug/mIFE U Sodium 136 (136-145) mmol/L Potassium 4.0 (3.5-5.1) mmol/L Chloride 96 L (98-107) mmol/L Carbon Dioxide 28 (22-29) mmol/L Anion Gap 16.0 (5-19) BUN 10 (6-20) mg/dL Creatinine 0.8 (0.7-1.2) mg/dL GFR Calculation 118.8 (90-130) mL/min Glucose 115 H (74-109) mg/dL Calcium 10.2 H (8.6-10.0) mg/Dl Total Bilirubin 0.3 (0.15-1.2) mg/dL AST 22 (0-40) U/L ALT 22 (0-41) U/L Alkaline Phosphata se 114 (40-130) IU/L Total Protein 8.2 (6.6-8.7) g/dL Albumin 4.8 (3.5-5.2) g/dL Globulin 3.4 (1.3-4.6) g/dL TSH 1.41 (0.27-4.20) uIU/ mL Urine Color (Yellow) Urine Appearance (CLEAR) Urine pH (5-7) Ur Specific Gravit y (1.005-1.030) Urine Protein (Negative) Urine Glucose (UA) (Normal) Urine Ketones (Negative) Urine Occult Blood (Negative) Urine Nitrate (Negative) Urine Bilirubin (NEGATIVE) Urine Urobilinogen (Negative) mg/dL Ur Leukocyte Carmina ase (Negative) Salicylates < 0.3 L (3-10) mg/dL Urine Opiates Scre en (Negative) ng/mL Acetaminophen < 5.0 L (10-30) ug/mL Ur Barbiturates Sc reen (Negative) ng/mL Ur Phencyclidine S crn (Negative) ng/mL Ur Amphetamines Sc reen (Negative) ng/mL U Benzodiazepines Scrn (Negative) ng/mL Urine Cocaine Scre en (Negative) ng/mL U Marijuana (THC) Screen (Negative) ng/mL Ethyl Alcohol < 10 (0-10) mg/dL Serum Ketones (Negative) 03/14/19 03/14/19 03/14/19 Range/Units 08:02 08:25 08:25 WBC (4.0-10.0) 10^3/ uL RBC (4.1-5.3) 10^6/u L Hgb (11.7-16.6) g/dL Hct (42.0-52.0) % MCV (80-94) fL MCH (28.0-34.0) pg MCHC (30.0-36.0) g/dL RDW (12.1-15.1) % Plt Count (130-400) 10^3/c mm MPV (7.4-10.4) fL Neut % (Auto) % Lymph % (Auto) % Rowan % (Auto) % Eos % (Auto) % Baso % (Auto) % Neut # (Auto) (1.8-7.7) 10^3/u L Lymph # (Auto) (0.8-4.8) 10^3/u L Rowan # (Auto) (0.2-0.9) 10^3/u L Eos # (Auto) (0.0-0.8) 10^3/u L Baso # (Auto) (0.0-0.1) 10^3/u L Nucleated RBC % (a uto) % Nucleated RBCs # /100WBC D-Dimer (0-0.59) ug/mIFE U Sodium (136-145) mmol/L Potassium (3.5-5.1) mmol/L Chloride (98-107) mmol/L Carbon Dioxide (22-29) mmol/L Anion Gap (5-19) BUN (6-20) mg/dL Creatinine (0.7-1.2) mg/dL GFR Calculation (90-130) mL/min Glucose (74-109) mg/dL Calcium (8.6-10.0) mg/Dl Total Bilirubin (0.15-1.2) mg/dL AST (0-40) U/L ALT (0-41) U/L Alkaline Phosphata se (40-130) IU/L Total Protein (6.6-8.7) g/dL Albumin (3.5-5.2) g/dL Globulin (1.3-4.6) g/dL TSH (0.27-4.20) uIU/ mL Urine Color Yellow (Yellow) Urine Appearance Clear (CLEAR) Urine pH 5 (5-7) Ur Specific Gravit y 1.015 (1.005-1.030) Urine Protein Neg (Negative) Urine Glucose (UA) Norm (Normal) Urine Ketones Negative (Negative) Urine Occult Blood Neg (Negative) Urine Nitrate Negative (Negative) Urine Bilirubin Neg (NEGATIVE) Urine Urobilinogen Norm (Negative) mg/dL Ur Leukocyte Carmina ase Negative (Negative) Salicylates (3-10) mg/dL Urine Opiates Scre en Negative (Negative) ng/mL Acetaminophen (10-30) ug/mL Ur Barbiturates Sc reen Negative (Negative) ng/mL Ur Phencyclidine S crn Negative (Negative) ng/mL Ur Amphetamines Sc reen Negative (Negative) ng/mL U Benzodiazepines Scrn Negative (Negative) ng/mL Urine Cocaine Scre en Negative (Negative) ng/mL U Marijuana (THC) Screen Negative (Negative) ng/mL Ethyl Alcohol (0-10) mg/dL Serum Ketones Negative (Negative) Imaging Data ^: CT Head: Radiologist's impression: Patient: Gen [place] Unit #: [id number] : 1995 Age/Sex: 23 / M ADM Date: 03/14/19 Loc: ER Room/Bed: Attending Dr: Ordering Provider/Ordering MD: Zev Batista DO Date of Service: 03/14/19 Procedure(s): CT head wo con* [id number] Accession Number(s): [id number] Report Number: [id number] WS: [id number] CT HEAD TECHNIQUE: Noncontrast CT of the head obtained from the skullbase to the vertex. CLINICAL INFORMATION: AMS COMPARISON: March 05, 2019 DLP: 939.[address] scans at [facility] use at least one of these dose optimization techniques: automated exposure control; mA and/or kV adjustment per patient size (includes targeted exams where dose is matched to clinical indication); or iterative reconstruction. FINDINGS: No evidence of intracranial hemorrhage or mass effect. Ventricular system and basal cisterns are patent. Incidental dystrophic calcification along the falx. No extra-axial fluid collections. No evidence of mass or mass effect. Normal collier-white differentiation. Paranasal sinuses and mastoid air cells are well aerated. .Normal visualized soft tissues. Notified Zev Batista DO at 03/14/2019 9:[address]/CT head wo con* [id number] IMPRESSION: 1. No evidence of intracranial hemorrhage or mass effect. 2. No acute intracranial findings. Dictated By: Wilfredo Cunningham MD Signed By: Wilfredo Cunningham MD Signed Date/Time: 03/14/19942 DD/ 7 CXR: Radiologist's impression: Patient: Gen Richard Unit #: [id number] : 1995 Age/Sex: 23 / M ADM Date: 03/14/19 Loc: ER Room/Bed: Attending Dr: Ordering Provider/Ordering MD: Zev Batista DO Date of Service: 03/14/19 Procedure(s): XR chest 1V portable [id number] Accession Number(s): [id number] Report Number: [id number] WS: [id number] PORTABLE CHEST HISTORY: chest pain COMPARISON: 03/05/2019 Lungs are clear and well expanded. No pleural effusion or pneumothorax. Cardiac size: Normal. Mediastinum/Aorta: Normal mediastinum. No osseous abnormality seen. XR/XR chest 1V portable [id number] IMPRESSION: Unremarkable portable chest. Dictated By: Marilee Harrington DO Signed By: Marilee Harrington DO Signed Date/Time: 03/14/19837 DD/ 7 Discharge Plan Discharge Patient Disposition: Admitted As Inpatient Admit Provider: Morgan Sanchez Discharge Date/Time: 03/14/19 10:32 Coding Level of Care Code ED Shield Operator for Chg Fwd Exam Problem Focused The documentation recorded by the Roderick houston Kialy, accurately reflects the service I personally performed and the decisions made by me, Zev Batista, Mar 14, 2019 07:51
--- NOTE | 2019-03-14 08:12 | XR_ITS ---
WS: [id number] PORTABLE CHEST HISTORY: chest pain COMPARISON: 03/05/2019 Lungs are clear and well expanded. No pleural effusion or pneumothorax. Cardiac size: Normal. Mediastinum/Aorta: Normal mediastinum. No osseous abnormality seen. XR/XR chest 1V portable [id number] IMPRESSION: Unremarkable portable chest.
[2019-03-14] MEDS: sodium chloride 0.9% 1,000 ML 999 ML IV (08:24)
[2019-03-14 08:25] LABS: Basophils # 0.1 10^3/uL (0.0-0.1); Basophils % 0.3 %; Eosinophils # 0.3 10^3/uL (0.0-0.8); Eosinophils % 1.5 %; Hematocrit 46.5 % (42.0-52.0); Lymphocytes # 3.9 10^3/uL (0.8-4.8); Lymphocytes % 19.8 %; Mean Corpuscular HGB Conc 34.4 g/dL (30.0-36.0); Mean Corpuscular Hemoglobin 29.5 pg (28.0-34.0); Mean Corpuscular Volume 85.8 fL (80-94); Mean Platelet Volume 10.2 fL (7.4-10.4); Monocytes # 0.9 10^3/uL (0.2-0.9); Monocytes % 4.3 %; Neutrophils # 14.5 10^3/uL (1.8-7.7); Neutrophils % 73.7 %; Nucleated Red Blood Cells % 0 %; Platelet Count 331 10^3/cmm (130-400); Red Blood Count 5.42 10^6/uL (4.1-5.3); Red Cell Distribution Width 12.9 % (12.1-15.1); White Blood Count 19.7 10^3/uL (4.0-10.0)
--- NOTE | 2019-03-14 08:25 | PC.NURSE ---
Xray at bedside
[2019-03-14 08:30] LABS: Ketone (Acetest) Serum Negative (Negative)
[2019-03-14 08:31] LABS: D Dimer 0.35 ug/mIFEU (0-0.59)
[2019-03-14 08:42] LABS: Add Urine Microscopic? NO
[2019-03-14 08:45] LABS: Alanine Aminotransferase 22 U/L (0-41); Albumin Level 4.8 g/dL (3.5-5.2); Alkaline Phosphatase 114 IU/L (40-130); Aspartate Amino Transferase 22 U/L (0-40); Blood Urea Nitrogen 10 mg/dL (6-20); Calcium 10.2 mg/Dl (8.6-10.0); Carbon Dioxide 28 mmol/L (22-29); Chloride 96 mmol/L (98-107); Globulin 3.4 g/dL (1.3-4.6); Glomerular Filtration Rate 118.8 mL/min (90-130); Glucose 115 mg/dL (74-109); Sodium 136 mmol/L (136-145); Thyroid Stimulating Hormone 1.41 uIU/mL (0.27-4.20); Total Bilirubin 0.3 mg/dL (0.15-1.2); Total Protein 8.2 g/dL (6.6-8.7)
[2019-03-14 08:47] LABS: Acetaminophen < 5.0 ug/mL (10-30); Alcohol Level < 10 mg/dL (0-10); Salicylate < 0.3 mg/dL (3-10)
[2019-03-14 08:50] LABS: Bilirubin Urine Neg (NEGATIVE); Blood Urine Neg (Negative); Glucose Urine UA Norm (Normal); Ketones Urine Negative (Negative); Leukocyte Esterase Urine Negative (Negative); Nitrate Urine Negative (Negative); Protein Urine Neg (Negative); Specific Gravity, Urine 1.015 (1.005-1.030); Urine Appearance Clear (CLEAR); Urine Color Yellow (Yellow); Urobilinogen Urine Norm (Negative); pH Urine 5 (5-7)
[2019-03-14 09:02] LABS: Amphetamines Screen Urine Negative (Negative); Barbiturates Screen Urine Negative (Negative); Benzodiazepines Screen Urine Negative (Negative); Cocaine Screen Urine Negative (Negative); Opiate Screen Urine Negative (Negative); PCP Screen Urine Negative (Negative); THC Screen Urine Negative (Negative)
--- NOTE | 2019-03-14 09:11 | CT_ITS ---
WS: [id number] CT HEAD TECHNIQUE: Noncontrast CT of the head obtained from the skullbase to the vertex. CLINICAL INFORMATION: AMS COMPARISON: March 05, 2019 DLP: 939.[address] scans at [facility] use at least one of these dose optimization techniques: automat ed exposure control; mA and/or kV adjustment per patient size (includes targeted exams where dose is matched to clinical indication); or iterative reconstruction. FINDINGS: No evidence of intracranial hemorrhage or mass effect. Ventricular system and basal cisterns are hampton nt. Incidental dystrophic calcification along the falx. No extra-axial fluid collections. No evidence of mass or mass effect. Normal collier-white differentiation. Paranasal sinuses and mastoid air cells are well aerated. .Normal visualized soft tissues. Notified Zev Batista DO at 03/14/2019 9:[address]/CT head wo con* [id number] IMPRESSION: 1. No evidence of intracranial hemorrhage or mass effect. 2. No acute intracranial findings.
--- NOTE | 2019-03-14 09:16 | PC.NURSE ---
Pt to CT
--- NOTE | 2019-03-14 09:24 | PC.NURSE ---
Pt back to room from CT
[2019-03-14 10:27] LABS: Ammonia 50 umol/L (16-60)
[2019-03-14 11:29] LABS: Influenza A by IFA Negative (Negative); Influenza B by IFA Negative (Negative)
[2019-03-15 06:00] VITALS: BP 105/67; PULSE 74; RESP 18; TEMP 36.8; O2SAT 97
[2019-03-15 14:00] VITALS: BP 99/56; PULSE 80; RESP 20; TEMP 37; O2SAT 98
--- NOTE | 2019-03-15 15:11 | PM.NHP ---
Providers/Chief Complaint Admitting Physician: Morgan Sanchez MD Chief Complaint: hallucinations-auditory/visual HPI NPU History of Present Illness Gen [place] is a 23 year old male Chief complaint: I just hear the normal spatial vibrations. History of present illness: Gen [place] Is a quiet, reserved, male who was admitted with the reports from the emergency room listed below. Verbal report is that he was discovered sleeping in bushes and frigid cold weather. There have been reports that he has been observed standing by the side of the road staring into traffic. These are unconfirmed. Further data that we have collateral to the patient is that his possession he has multiple citations for trespassing all for the last week. Citations describe him as homeless and at one point he was trespassing on rainy days. 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 On the other hand, there is a verbal report from emergency room staff that he was emergency room 1 day providing people a different name. The patient provides little information himself. He states that he grew up in [place] and lived with his uncle. He states that he is not having thoughts of ending his life or anyone else's. He is unable to state anything specific that he wants. However he appeared to relax once he was told that he would not be discharged today. He denied that he was homeless but could not give a place where he lived.He states that he wants the right medication but cannot identify any specific medication once or target symptoms of any medication. Laboratory Tests 03/05/19 03/06/19 03/14/19 17:04 18:46 08:02 WBC 13.2 H 10.2 H 19.7 H Urine Opiates Screen Ur Barbiturates Screen Ur Phencyclidine Scrn Ur Amphetamines Screen U Benzodiazepines Scrn Urine Cocaine Screen U Marijuana (THC) Screen Serum Ketones 03/14/19 03/14/19 08:02 08:25 WBC Urine Opiates Screen Negative Ur Barbiturates Screen Negative Ur Phencyclidine Scrn Negative Ur Amphetamines Screen Negative U Benzodiazepines Scrn Negative Urine Cocaine Screen Negative U Marijuana (THC) Screen Negative Serum Ketones Negative Emergency room physician notes over the past week: 03/05/2019 HPI Narrative: 23 yo male with h/o migraines presents via EMS c/o abrupt onset headache that started this evening. He reports this is worse than his usual migraine, but is similar. He has been out in the cold this evening, states he has just been walking around. Also reporting anxious shakes . EMS reports they picked him up that police station, he had walked there. 03/06/2019 HPI narrative: 23 yo male presents stating he is here because his hands are cold and he is getting nervous convulsions everywhere . He reports fever, it was up there, I can feel it . He reports cough. He was brought in by EMS, picked up at the police station, was not in custody. When asked if he has been depressed he states I am feeling down due to some rehtorical stuff . He as been worried. He denies thoughts of harming himself or others. He states he has had out of body experiences . He does smoke cigarettes. Denies alcohol or drug use. 03/14/2019 HPI narrative: 23 yo male presnets with abd pain and shaking. Pt states that he is cough. Pt [facility]. Pt seems lethargic. Pt states that he smoked marijuana last night. Pt states that he abd pain has been present for 2 days, he had chest pain that is worsened when palpated. Social history:No information beyond that provided above. Legal history:There is no record of any type of arrests or legal proceedings of any kind for Gen Richard. Past medical history:Limited to that acquired by emergency room staff. Mental Status Exam: The patient is alert interpersonally engaged male appearing approximately his stated age. His hygiene is much improved since the time of admission. On admission, he was malodorous and had hygiene. However his hair appears to have styled within the past 3 weeks.His fingernails are long but appear to open manicured at one time. I contacted variable. During the initial part of the interview, provides no eye contact and simply looks down into his lap. However once it becomes apparent that he is not discharged today, she is improved I contact. Verbalizations are 2 one-word or short phrases. Many times he will simply not answer. However it does not appear that he is being distracted by internal stimuli or auditory hallucinations. There are no tics or tremors. There is no attention to internal stimuli.Prior to the interview, was seen wash his hands is present. His movements were quite deliberate and slow. It is unclear if he was utilizing the time to prepare himself for the interview. He did not appear to be occupied by internal stimuli. Appearance: hygiene is fair; no gross neurological deficits., gait is unremarkable; AIMS=0 Speech: Speech is of normal rate and rhythm and easily understood. Unable to assess vocabulary Thought processes: Thought processes are Unable to be assessed. Judgment is Unable to be assessed.. Psychotic processes: Auditory and visual hallucinations are denied. Judgment: Insight is fair. PUnable to be assessed Orientation: He appears to be oriented to situation Memory: Unable to test Attention: The patient is alert and interpersonally engaged. Language: Verbalizations are coherent. Fund of knowledge: Fund of knowledge is Not assessed Affect/Mood: Affect is Flapwith a Unstated mood. Denied suicidal ideation Affective range Flat Psychosis: Unable to be assessed Diagnoses: Delirium secondary to unknown etiology Psychotic disorder?not otherwise specified Rule out?malingering Assessment: The patient is either unwilling or unable to participate in a reasonable mental status exam given the severity of weather outside and the inability to assess whether he has adequate problem solving skills to be able to remain safe, he will remain in the hospital overnight where we can further observe his interactions with peers, staff, and signs of psychosis. Treatment plan: Due to the psychiatric conditions and treatment listed in the Assessment and Plan - the patient requires continued hospitalization. Will provide a safe and therapeutic environment for patient.. Will continue inpatient treatment to allow for medication adjustment and monitoring. Will continue q15 min safety checks. Hospital day #1:The patient is either unwilling or unable to participate in a reasonable mental status exam given the severity of weather outside and the inability to assess whether he has adequate problem solving skills to be able to remain safe, he will remain in the hospital overnight where we can further observe his interactions with peers, staff, and signs of psychosis. Monitor patient's mood, sleep, appetite, and behavior closely. Encourage patient to participate in individual and group therapeutic sessions on the phan. Estimated length of stay 5 days The expected benefits and potential side effects of patient's psychiatric medications were discussed with the patient. The patient understands and consents to treatment.CRITERIA FOR DISCHARGE: stable on medications and no longer an im Meds NPU Home Medications Medication Instructions Recorded Confirmed Type naproxen sodium [Aleve] 220 mg PO BID PRN 03/14/19 03/14/19 History Allergies Allergy/AdvReac Type Severity Reaction Status Date / Time aspirin Allergy ALGY-Hives Verified 03/14/19 08:06 PFSH NPU PFSH: Statuses (acute, chronic, etc) shown below reflect problem list status as previously entered and may not be historically accurate Medical History (Updated 03/14/19 @ 08:09 by Nilda Vaughn) Depression (Acute) Social History Smoking and tobacco status: current every day smoker Vitals/I&O/Wt Last Vital Signs Temp 98.6 F 03/15/19 14:00 Pulse 80 03/15/19 14:00 Resp 20 H 03/15/19 14:00 BP 99/56 03/15/19 14:00 Pulse Ox 98 03/15/19 14:00 Weight last 48 hrs Weight 80.286 kg Data NPU : 03/14/19 08:02 03/14/19 08:02 Involuntary Hold Information 96 Hour Hold: 96 Hour Involuntary Admission: No Attestations NPU Medical Necessity Statement*: Patient will remain in hospital another 2-3 nights until we can determine whether the patient is at risk to self or others. Coding Level of Care Code Acute Rent And Miscellaneous Remittance Clerk for Ethan Olvera
[2019-03-15 21:14] VITALS: BP 114/64; PULSE 70; RESP 18; TEMP 36.9; O2SAT 97
[2019-03-16 06:00] VITALS: BP 103/58; PULSE 56; RESP 18; TEMP 36.6; O2SAT 99
--- NOTE | 2019-03-16 10:13 | P.PN_ITS ---
Subjective NPU Subjective: Interval history: Pt denies that he hears voices but he is comforted by the spirit that he engages when he meditates. He does not provide more information. He denies being depressed. He continues to spend a lot of time attending to his internal thoughts though it continues to be unclear what those are. Medications: Medication Review Details: Some very odd things have been discovered. His drivers license is only 3 months old, shows a man who is accustomed to attending to his appearnce with no note of disorganization. The address on his drvers license is [facility], a local substance abuse rehab program. 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 Kalpana appears to be tied to a residence somewhere in [place]. Vitals/I&O/Wt Last Vital Signs Temp 97.8 F 03/16/19 06:00 Pulse 56 L 03/16/19 06:00 Resp 18 03/16/19 06:00 BP 103/58 03/16/19 06:00 Pulse Ox 99 03/16/19 06:00 Data NPU : 03/14/19 08:02 03/14/19 08:02 A&P Additional A&P Information Mental Status Exam: The patient is alert interpersonally engaged male appearing approximately his stated age. Verbalizations are 2 one-word or short phrases. Many times he will simply not answer. However it does not appear that he is being distracted by internal stimuli or auditory hallucinations. There are no tics or tremors. There is no attention to internal stimuli. Appearance: hygiene is fair; no gross neurological deficits., gait is unremarkable; AIMS=0 Speech: Speech is of normal rate and rhythm and easily understood. Unable to assess vocabulary Thought processes: Thought processes are Unable to be fully assessed. Answers to questions are on topic though he continues to provide no data and speaks in vague generalizations. Judgment is adequate for safety. Psychotic processes: Auditory and visual hallucinations are denied. Judgment: Insight is fair. Problem solving skills are indeterminate. Orientation: He appears to be oriented to situation Memory: Unable to test Attention: The patient is alert and interpersonally engaged. Language: Verbalizations are coherent. Fund of knowledge: Fund of knowledge is Not assessed Affect/Mood: Affect is flat with a euthymic mood. Denied suicidal ideation Affective range Flat Psychosis: Unable to be assessed Diagnoses: Delirium secondary to unknown etiology Psychotic disorder?not otherwise specified Rule out?malingering Assessment: This continues to be a diagnostic conundrum. He is not explaining anything about himself especially with regard to information discovered about him. It is unclear whether this is being driven by paranoia or volitional obfuscation. Treatment plan: Due to the psychiatric conditions and treatment listed in the Assessment and Plan - the patient requires continued hospitalization. Will provide a safe and therapeutic environment for patient.. Will continue inpatient treatment to allow for medication adjustment and monitoring. Will continue q15 min safety checks. Hospital day #1:The patient is either unwilling or unable to participate in a reasonable mental status exam given the severity of weather outside and the inability to assess whether he has adequate problem solving skills to be able to remain safe, he will remain in the hospital overnight where we can further observe his interactions with peers, staff, and signs of psychosis. Hospital Day #2: pt agreed to trial of risperidone 1 mg and hydroxyzine 25 mg prn anxiety Monitor patient's mood, sleep, appetite, and behavior closely. Encourage patient to participate in individual and group therapeutic sessions on the phan. Estimated length of stay 5 days The expected benefits and potential side effects of patient's psychiatric medications were discussed with the patient. The patient understands and consents to treatment.CRITERIA FOR DISCHARGE: stable on medications and no longer an im Involuntary Hold Information 96 Hour Hold: 96 Hour Involuntary Admission: No Attestations NPU Medical Necessity Statement*: Patient will remain in the hospital another 3 days while we continue to assess his degree of psychosis. Coding Level of Care Code Acute Tractor Technician for Ethan Olvera
[2019-03-16] MEDS: risperiDONE 1 mg Tablet PO (10:34)
[2019-03-16] MEDS: hyDROXYzine 25 mg Capsule PO (10:34)
[2019-03-16 14:00] VITALS: BP 94/59; PULSE 69; RESP 18; TEMP 36.7; O2SAT 100
[2019-03-16 19:53] VITALS: BP 84/51; PULSE 68; RESP 15; TEMP 36.7
[2019-03-17 06:00] VITALS: BP 110/71; PULSE 65; RESP 18; TEMP 36.5; O2SAT 98
--- NOTE | 2019-03-17 13:15 | P.PN_ITS ---
Subjective NPU Subjective: Interval history: Information provided by SW was relayed to the pt. He was asked if this information was correct. He nodded in agreement. He would not/ could not answer questions about his drug of choice . Medications: Medication Review Details: Informatio provided form Social Work assessment GREATLY appreciated. All information seems to be coherent and logical in this context. Mental Status Exam Cognition: Patient Appearance: Disheveled/Poor Hygiene Level of Consciousness: Awake, Alert, Appropriate and Follows Commands Patient Cognition Impaired: No Ability to Follow Directions: Fair Patient Orientation (long list): Person, Place, Name, Age and Birthday Comprehension Ability: Mild Impairment Hallucination Type: None Delusion Description: Not Present Thought Process: Disorganized Affect: Affect Description: Flat and Guarded Behavior: Patient Behavior: Cooperative and Withdrawn Speech Pattern: Clear Vitals/I&O/Wt Last Vital Signs Temp 97.7 F 03/17/19 06:00 Pulse 65 03/17/19 06:00 Resp 18 03/17/19 06:00 BP 110/71 03/17/19 06:00 Pulse Ox 98 03/17/19 06:00 Data NPU : 03/14/19 08:02 03/14/19 08:02 A&P Assessment and plan (1) Psychotic disorder: Status: Acute Code(s): F29 - Unspecified psychosis not due to a substance or known physiological condition Additional A&P Information Mental Status Exam: The patient is alert interpersonally engaged male appearing approximately his stated age. Verbalizations are 2 one-word or short phrases. Most times he will simply not answer. He will answer questions with nods and it seems as though he is aware of when he is being asked important questions. There are no tics or tremors. There is no attention to internal stimuli. Appearance: hygiene is fair; no gross neurological deficits., gait is unre markable; AIMS=0 Speech: Speech is of normal rate and rhythm and easily understood. Unable to assess vocabulary Thought processes: Thought processes are Unable to be fully assessed. Answers to questions are on topic though he continues to provide no data and speaks in vague generalizations. Judgment is adequate for safety. Psychotic processes: Auditory and visual hallucinations are denied. Judgment: Insight is fair. Problem solving skills are indeterminate. Orientation: He appears to be oriented to situation Memory: Unable to test Attention: The patient is alert and interpersonally engaged. Language: Verbalizations are coherent. Fund of knowledge: Fund of knowledge is Not assessed Affect/Mood: Affect is constriced but at the end of the interview he was able to smile slightly with a undeclared mood. Denied suicidal ideation Affective range Flat Psychosis: Unable to be assessed Diagnoses: Psychotic disorder?not otherwise specified Delirium secondary to unknown etiology Assessment: Increasingly this seems to be a substance induced psychosis. Given his history, there is no way to differentiate whether his psychosis is a freestanding psychiatric diagnosis or secondary to his circuitous and long history of substance use.He has responded positively to Abilify in the past by family report. Plantars this time is to restart the Abilify and also provide now troxidone for craving as the Abilify and rehabilitation loan have not been sufficient to maintain him in a functional state. At this time, he would be considered an imminent risk to himself if he were allowed to leave the hospital. He displays inadequate problem-solving skills and insight to remain out of harm's way, maintain shoulder and acquire sustenance. Treatment plan: Due to the psychiatric conditions and treatment listed in the Assessment and Plan - the patient requires continued hospitalization. Will provide a safe and therapeutic environment for patient.. Will continue inpatient treatment to allow for medication adjustment and monitoring. Will continue q15 min safety checks. Hospital day #1:The patient is either unwilling or unable to participate in a reasonable mental status exam given the severity of weather outside and the inability to assess whether he has adequate problem solving skills to be able to remain safe, he will remain in the hospital overnight where we can further observe his interactions with peers, staff, and signs of psychosis. 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 Given his history, there is no way to differentiate whether his psychosis is a freestanding psychiatric diagnosis or secondary to his circuitous and long history of substance use.He has responded positively to Abilify in the past by family report. Plantars this time is to restart the Abilify and also provide now troxidone for craving as the Abilify and rehabilitation loan have not been sufficient to maintain him in a functional state. At this time, he would be considered an imminent risk to himself if he were allowed to leave the hospital. He displays inadequate problem-solving skills and insight to remain out of harm's way, maintain shoulder and acquire sustenance. Plan: Replace risperidone with Abilify to 10 mg daily and add naltrexone 50 mg daily to assess tolerance. Will increase as needed or tolerated. An affidavit for involuntary commitment has been placed on his chart to keep him in the hospital should he attempt to leave. Monitor patient's mood, sleep, appetite, and behavior closely. Encourage patient to participate in individual and group therapeutic sessions on the phan. Estimated length of stay 5 days The expected benefits and potential side effects of patient's psychiatric medications were discussed with the patient. The patient understands and consents to treatment.CRITERIA FOR DISCHARGE: stable on medications and no longer an im Involuntary Hold Information 96 Hour Hold: 96 Hour Involuntary Admission: No Attestations NPU Medical Necessity Statement*: Patient will remain in the hospital another 5 nights for the completion of his 96 hour involuntary commitment. Coding Level of Care Code Acute Radiation Oncology Nurse for Ethan Olvera Diagnoses Psychotic disorder F29
[2019-03-17] MEDS: naltrexone hcl 50 mg Tablet PO (13:49)
[2019-03-17] MEDS: ARIPiprazole 10 mg Tablet 5 MG PO (13:49)
[2019-03-17 14:00] VITALS: BP 111/62; PULSE 68; RESP 20; TEMP 36.8; O2SAT 98
--- NOTE | 2019-03-17 14:51 | PC.SOCIAL ---
information from Mr. Michele at [facility]: 1. has been in their program for 3 months. 2. patient has used several different drugs. 3. has admitted to having delusions of being god. 4. when he has high anxiety he puts things over his head. 5. he has made threats to punch someone but he has never done it. 6. his mom has been trying to find him. mom, Barbara Turner [phone] says 1. that patient has been on abilify and has done well on it. 2. he was normal until he started using drugs. 3. started using drugs at age 15. 4. has graduated from high school. has gone to college but left after a semester. 5. went to [employer] program in [place]. He left the same day because he did not follow the rules. 6. went to [facility]. He stayed there for 3 months. 7. He also went to [facility] [place] but then was kicked out after stealing a xbox. He also relapsed after mom had sent him $50 to get hair cut etc. Mom is [place]. 8. dad had some depression 9. he worked for [employer]. he was able to pay bills. 10. Drug usage has been very bad in the last 4 years. patient stopped and started medicine about 3 times where he did well for about 3 months and then he would do drugs.
[2019-03-17 21:27] VITALS: BP 119/70; PULSE 72; RESP 20; TEMP 36.4
[2019-03-18 06:00] VITALS: BP 119/73; PULSE 73; RESP 19; TEMP 36.7; O2SAT 97
[2019-03-18] MEDS: ARIPiprazole 10 mg Tablet PO (09:41)
[2019-03-18] MEDS: naltrexone hcl 50 mg Tablet PO (09:41)
[2019-03-18 14:00] VITALS: BP 107/65; PULSE 57; RESP 18; TEMP 36.8; O2SAT 97
--- NOTE | 2019-03-18 20:51 | PM.NPN ---
Subjective NPU Subjective: Interval history: Patient is without complaint. He specifically requests no changes be made in his medication. Medications: Medication Review Details: Staff reports that he slept well last night.Vital signs are unremarkable. No new labs. Mental Status Exam MSE Comments: . Cognition: Patient Appearance: Disheveled/Poor Hygiene Level of Consciousness: Awake, Alert, Appropriate and Follows Commands Patient Cognition Impaired: No Ability to Follow Directions: Fair Patient Orientation (long list): Person, Place, Name, Age and Birthday Comprehension Ability: Mild Impairment Hallucination Type: None Delusion Description: Not Present Thought Process: Appropriate Affect: Affect Description: [place] Behavior: Patient Behavior: Appropriate Speech Pattern: Appropriate Vitals/I&O/Wt Last Vital Signs Temp 98.4 F 03/21/19 21:15 Pulse 81 03/21/19 21:15 Resp 17 03/21/19 21:15 BP 100/64 03/21/19 21:15 Pulse Ox 97 03/21/19 21:15 Data NPU : 03/14/19 08:02 03/14/19 08:02 A&P Assessment and plan (1) Psychotic disorder: Status: Acute Code(s): F29 - Unspecified psychosis not due to a substance or known physiological condition (2) Schizophrenia, acute undifferentiated: Status: Inactive Code(s): F20.3 - Undifferentiated schizophrenia Additional A&P Information Mental Status Exam: The patient is alert interpersonally engaged male appearing approximately his stated age. AIM=0. He is becoming more talkative though he continues to maintain communication in short phrases and short sentences. He does answer questions directly now. I contact is notably increased in unblinking. He does not respond to internal stimuli but it is consistent with him attending to his own internal thought processes. Appearance: hygiene is fair; no gross neurological deficits., gait is unremarkable; AIMS=0 Speech: Speech is of normal rate and rhythm and easily understood. Unable to assess vocabulary Thought processes: Thought processes are Unable to be fully assessed. Judgment is not adequate for safety. Psychotic processes: Auditory and visual hallucinations are denied. Judgment: Insight is poor. Problem solving skills are indeterminate. Orientation: Patient is oriented to self, situation, time, and place Memory: Memories vaguely accurate in the sense that he does report recent events consistent with what is known about him. However it is not formally tested. Attention: The patient is alert and interpersonally engaged. Language: Verbalizations are coherent. Fund of knowledge: Fund of knowledge is Not assessed Affect/Mood: Affect is constricted; No response to humor. Denied suicidal ideation Affective range Flat Psychosis: Difficult to assess fully but he does appear to be continuing to struggle with internal stimuli and challenges to his reality testing. Diagnoses: Psychotic disorder?not otherwise specified Delirium secondary to unknown etiology Assessment: Information provided from outside sources are patent this as a combination of substance-induced psychosis but also a significant history consistent with schizophrenia. We are treating this as schizophrenia as the primary diagnosis at this time. Treatment plan: Due to the psychiatric conditions and treatment listed in the Assessment and Plan - the patient requires continued hospitalization. Will provide a safe and therapeutic environment for patient.. Will continue inpatient treatment to allow for medication adjustment and monitoring. Will continue q15 min safety checks. Hospital day #1:The patient is either unwilling or unable to participate in a reasonable mental status exam given the severity of weather outside and the inability to assess whether he has adequate problem solving skills to be able to remain safe, he will remain in the hospital overnight where we can further observe his interactions with peers, staff, and signs of psychosis. 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 Given his history, there is no way to differentiate whether his psychosis is a freestanding psychiatric diagnosis or secondary to his circuitous and long history of substance use.He has responded positively to Abilify in the past by family report. Plantars this time is to restart the Abilify and also provide now troxidone for craving as the Abilify and rehabilitation loan have not been sufficient to maintain him in a functional state. At this time, he would be considered an imminent risk to himself if he were allowed to leave the hospital. He displays inadequate problem-solving skills and insight to remain out of harm's way, maintain shoulder and acquire sustenance. Plan: Replace risperidone with Abilify to 10 mg daily and add naltrexone 50 mg daily to assess tolerance. Will increase as needed or tolerated. An affidavit for involuntary commitment has been placed on his chart to keep him in the hospital should he attempt to leave. Hospital day #4: Information provided from outside sources are patent this as a combination of substance-induced psychosis but also a significant history consistent with schizophrenia. We are treating this as schizophrenia as the primary diagnosis at this time. He seems to be responding well to the current medication with no side effects. Plan: Continue Abilify day #3 and naltrexone 50 mg daily. HD#5: pt is inceasingly more engaged in milieu and starting to attend groups. However, he continues to be guarded and suspicious and continues to not be a relaible informnt. PLAN: continue with current meds and to explore discharge options to [place] under guidance from family. Monitor patient's mood, sleep, appetite, and behavior closely. Encourage patient to participate in individual and group therapeutic sessions on the phan. Estimated length of stay 5 days The expected benefits and potential side effects of patient's psychiatric medications were discussed with the patient. The patient understands and consents to treatment.CRITERIA FOR DISCHARGE: stable on medications and no longer an im Involuntary Hold Information 96 Hour Hold: 96 Hour Involuntary Admission: No 96 Hour Hold Start Date: 04/15/19 96 Hour Hold Start Time: 10:07 96 Hour Hold Ending Date: 04/21/19 96 Hour Hold Ending Time: 10:07 Attestations NPU Medical Necessity Statement*: Pt to reain in hospital for 3 more nights for 96 involuntary commitment Coding Level of Care Code Acute Distillery Manager for Ethan Olvera Diagnoses Psychotic disorder F29 Schizophrenia, acute undifferentiated F20.3
[2019-03-18 21:01] VITALS: BP 119/84; PULSE 73; RESP 19; TEMP 36.8; O2SAT 98
[2019-03-19 05:56] VITALS: BP 116/73; PULSE 73; RESP 19; TEMP 36.8; O2SAT 97
[2019-03-19] MEDS: ARIPiprazole 10 mg Tablet PO (08:45)
[2019-03-19] MEDS: naltrexone hcl 50 mg Tablet PO (08:45)
--- NOTE | 2019-03-19 13:05 | PM.NPN ---
Subjective NPU Subjective: Interval history: Patient is without complaint. He reports that he slept well last night. He specifically requests no changes be made in his medication. Medications: Medication Review Details: Staff reports that he slept well last night.Vital signs are unremarkable. No new labs. Mental Status Exam Cognition: Patient Appearance: Disheveled/Poor Hygiene Level of Consciousness: Awake, Alert, Appropriate and Follows Commands Patient Cognition Impaired: No Ability to Follow Directions: Fair Patient Orientation (long list): Person, Place, Name, Age and Birthday Comprehension Ability: Mild Impairment Hallucination Type: None Delusion Description: Not Present Thought Process: Confused and Flight of Ideas Affect: Affect Description: [place] Behavior: Patient Behavior: Appropriate Speech Pattern: Clear Vitals/I&O/Wt Last Vital Signs Temp 98.2 F 03/19/19 05:56 Pulse 73 03/19/19 05:56 Resp 19 H 03/19/19 05:56 BP 116/73 03/19/19 05:56 Pulse Ox 97 03/19/19 05:56 Data NPU : 03/14/19 08:02 03/14/19 08:02 A&P Assessment and plan (1) Psychotic disorder: Status: Acute Code(s): F29 - Unspecified psychosis not due to a substance or known physiological condition (2) Schizophrenia, acute undifferentiated: Status: Acute Code(s): F20.3 - Undifferentiated schizophrenia Additional A&P Information Mental Status Exam: The patient is alert interpersonally engaged male appearing approximately his stated age. AIM=0. He is becoming more talkative though he continues to maintain communication in short phrases and short sentences. He does answer questions directly now. I contact is notably increased in unblinking. He does not respond to internal stimuli but it is consistent with him attending to his own internal thought processes. Appearance: hygiene is fair; no gross neurological deficits., gait is unremarkable; AIMS=0 Speech: Speech is of normal rate and rhythm and easily understood. Unable to assess vocabulary Thought processes: Thought processes are Unable to be fully assessed. Judgment is not adequate for safety. Psychotic processes: Auditory and visual hallucinations are denied. Judgment: Insight is poor. Problem solving skills are indeterminate. Orientation: Patient is oriented to self, situation, time, and place Memory: Memories vaguely accurate in the sense that he does report recent events consistent with what is known about him. However it is not formally tested. Attention: The patient is alert and interpersonally engaged. Language: Verbalizations are coherent. Fund of knowledge: Fund of knowledge is Not assessed Affect/Mood: Affect is constricted; No response to humor. Denied suicidal ideation Affective range Flat Psychosis: Difficult to assess fully but he does appear to be continuing to struggle with internal stimuli and challenges to his reality testing. Diagnoses: Psychotic disorder?not otherwise specified Delirium secondary to unknown etiology Assessment: Information provided from outside sources are patent this as a combination of substance-induced psychosis but also a significant history consistent with schizophrenia. We are treating this as schizophrenia as the primary diagnosis at this time. Treatment plan: Due to the psychiatric conditions and treatment listed in the Assessment and Plan - the patient requires continued hospitalization. Will provide a safe and therapeutic environment for patient.. Will continue inpatient treatment to allow for medication adjustment and monitoring. Will continue q15 min safety checks. Hospital day #1:The patient is either unwilling or unable to participate in a reasonable mental status exam given the severity of weather outside and the inability to assess whether he has adequate problem solving skills to be able to remain safe, he will remain in the hospital overnight where we can further observe his interactions with peers, staff, and signs of psychosis. 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 Given his history, there is no way to differentiate whether his psychosis is a freestanding psychiatric diagnosis or secondary to his circuitous and long history of substance use.He has responded positively to Abilify in the past by family report. Plantars this time is to restart the Abilify and also provide now troxidone for craving as the Abilify and rehabilitation loan have not been sufficient to maintain him in a functional state. At this time, he would be considered an imminent risk to himself if he were allowed to leave the hospital. He displays inadequate problem-solving skills and insight to remain out of harm's way, maintain shoulder and acquire sustenance. Plan: Replace risperidone with Abilify to 10 mg daily and add naltrexone 50 mg daily to assess tolerance. Will increase as needed or tolerated. An affidavit for involuntary commitment has been placed on his chart to keep him in the hospital should he attempt to leave. Hospital day #4: Information provided from outside sources are patent this as a combination of substance-induced psychosis but also a significant history consistent with schizophrenia. We are treating this as schizophrenia as the primary diagnosis at this time. He seems to be responding well to the current medication with no side effects. Plan: Continue Abilify day #3 and naltrexone 50 mg daily. Monitor patient's mood, sleep, appetite, and behavior closely. Encourage patient to participate in individual and group therapeutic sessions on the phan. Estimated length of stay 5 days The expected benefits and potential side effects of patient's psychiatric medications were discussed with the patient. The patient understands and consents to treatment.CRITERIA FOR DISCHARGE: stable on medications and no longer an im Involuntary Hold Information 96 Hour Hold: 96 Hour Involuntary Admission: No Attestations NPU Medical Necessity Statement*: Patient remained in the hospital another 3-4 days while his psychosis improves and discharge planning can be established. Coding Level of Care Code Acute Grooving Lathe Tender for Ethan Olvera Diagnoses Psychotic disorder F29 Schizophrenia, acute undifferentiated F20.3
[2019-03-19 14:00] VITALS: BP 104/61; PULSE 80; RESP 18; TEMP 36.7; O2SAT 97
[2019-03-19 21:38] VITALS: BP 110/61; PULSE 81; RESP 18; TEMP 36.8; O2SAT 96
[2019-03-20 06:00] VITALS: BP 105/61; PULSE 65; RESP 19; TEMP 36.9; O2SAT 97
[2019-03-20] MEDS: naltrexone hcl 50 mg Tablet PO (08:41)
[2019-03-20] MEDS: ARIPiprazole 10 mg Tablet PO (08:41)
[2019-03-20 13:05] VITALS: BP 105/66; PULSE 80; RESP 19; TEMP 36.6; O2SAT 97
[2019-03-20] MEDS: acetaminophen 325 mg Tablet 650 MG PO (17:55)
[2019-03-20] MEDS: benztropine 1 mg Tablet PO (17:56)
--- NOTE | 2019-03-20 17:56 | PC.NURSE ---
PT VOICED THTA HE WAS HAVING SOME UPPER BODY STIFFNESS. ADMINISTERED COGENTIN 1 MG PO WELL PRN TYLENOL. WILL CONT TO MONITOR AND FOLLOW UP NEEDED
--- NOTE | 2019-03-20 18:42 | PC.NURSE ---
PT VOICES THAT MEDICATION WAS HELPFUL. RESTING IN BED. WILL CONT TO [place] AND FOLLOW UP NEEDED
--- NOTE | 2019-03-20 20:57 | PM.NPN ---
Vitals/I&O/Wt Last Vital Signs Temp 98.4 F 03/21/19 21:15 Pulse 81 03/21/19 21:15 Resp 17 03/21/19 21:15 BP 100/64 03/21/19 21:15 Pulse Ox 97 03/21/19 21:15 Data NPU : 03/14/19 08:02 03/14/19 08:02 A&P Additional A&P Information Mental Status Exam: The patient is alert interpersonally engaged male appearing approximately his stated age. AIM=0. He is becoming more talkative though he continues to maintain communication in short phrases and short sentences. He does answer questions directly now. I contact is notably increased in unblinking. He does not respond to internal stimuli but it is consistent with him attending to his own internal thought processes. Appearance: hygiene is fair; no gross neurological deficits., gait is unremarkable; AIMS=0 Speech: Speech is of normal rate and rhythm and easily understood. Unable to assess vocabulary Thought processes: Thought processes are Unable to be fully assessed. Judgment is not adequate for safety. Psychotic processes: Auditory and visual hallucinations are denied. Judgment: Insight is poor. Problem solving skills are indeterminate. Orientation: Patient is oriented to self, situation, time, and place Memory: Memories vaguely accurate in the sense that he does report recent events consistent with what is known about him. However it is not formally tested. Attention: The patient is alert and interpersonally engaged. Language: Verbalizations are coherent. Fund of knowledge: Fund of knowledge is Not assessed Affect/Mood: Affect is constricted; No response to humor. Denied suicidal ideation Affective range Flat Psychosis: Difficult to assess fully but he does appear to be continuing to struggle with internal stimuli and challenges to his reality testing. Diagnoses: Psychotic disorder?not otherwise specified Delirium secondary to unknown etiology Assessment: Information provided from outside sources are patent this as a combination of substance-induced psychosis but also a significant history consistent with schizophrenia. We are treating this as schizophrenia as the primary diagnosis at this time. Treatment plan: Due to the psychiatric conditions and treatment listed in the Assessment and Plan - the patient requires continued hospitalization. Will provide a safe and therapeutic environment for patient.. Will continue inpatient treatment to allow for medication adjustment and monitoring. Will continue q15 min safety checks. Hospital day #1:The patient is either unwilling or unable to participate in a reasonable mental status exam given the severity of weather outside and the inability to assess whether he has adequate problem solving skills to be able to remain safe, he will remain in the hospital overnight where we can further observe his interactions with peers, staff, and signs of psychosis. 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 Given his history, there is no way to differentiate whether his psychosis is a freestanding psychiatric diagnosis or secondary to his circuitous and long history of substance use.He has responded positively to Abilify in the past by family report. [place] this time is to restart the Abilify and also provide now troxidone for craving as the Abilify and rehabilitation loan have not been sufficient to maintain him in a functional state. At this time, he would be considered an imminent risk to himself if he were allowed to leave the hospital. He displays inadequate problem-solving skills and insight to remain out of harm's way, maintain shoulder and acquire sustenance. Plan: Replace risperidone with Abilify to 10 mg daily and add naltrexone 50 mg daily to assess tolerance. Will increase as needed or tolerated. An affidavit for involuntary commitment has been placed on his chart to keep him in the hospital should he attempt to leave. Hospital day #4: Information provided from outside sources are patent this as a combination of substance-induced psychosis but also a significant history consistent with schizophrenia. We are treating this as schizophrenia as the primary diagnosis at this time. He seems to be responding well to the current medication with no side effects. Plan: Continue Abilify day #3 and naltrexone 50 mg daily. Hospital Day #6: Patient is unable to establish a reasonable discharge plan and refuses to cooperate with developing plan which includes supportive parents. Pt is tolerating Abilify well and abilify injection being encouraged but refused. Monitor patient's mood, sleep, appetite, and behavior closely. Encourage patient to participate in individual and group therapeutic sessions on the phan. Estimated length of stay 5 days The expected benefits and potential side effects of patient's psychiatric medications were discussed with the patient. The patient understands and consents to treatment.CRITERIA FOR DISCHARGE: stable on medications and no longer an im Involuntary Hold Information 96 Hour Hold: 96 Hour Involuntary Admission: No 96 Hour Hold Start Date: 04/15/19 96 Hour Hold Start Time: 10:07 96 Hour Hold Ending Date: 04/21/19 96 Hour Hold Ending Time: 10:07 Attestations NPU Medical Necessity Statement*: Pt will remain in hospital another 3 nights for complietioin of involuntary commitment. Coding Level of Care Code Acute Drapery Inspector for Ethan Olvera
[2019-03-20] MEDS: trazodone 50 mg Tablet PO (21:00)
[2019-03-20 21:37] VITALS: BP 119/78; PULSE 76; RESP 17; TEMP 36.8; O2SAT 99
[2019-03-21 07:10] VITALS: BP 102/61; PULSE 57; RESP 17; TEMP 36.6; O2SAT 98
[2019-03-21] MEDS: ARIPiprazole 10 mg Tablet PO (09:38)
[2019-03-21] MEDS: naltrexone hcl 50 mg Tablet PO (09:38)
[2019-03-21 13:23] VITALS: BP 98/59; PULSE 72; RESP 18; TEMP 37.1; O2SAT 97
--- NOTE | 2019-03-21 19:27 | P.DS_ITS ---
Diagnoses at Discharge Discharge Diagnosis (1) Psychotic disorder: Status: Acute (2) Schizophrenia, acute undifferentiated: Status: Acute Reason for Visit Reason for Visit: Reason For Visit: hallucinations-auditory/visual Hospital Course Hospital Course The patient has in the span of his brief hospitalization decided he feels good and does not need the medicine prescribed for his schizophrenia. Oddly, he is currently to manage his own health care even if he does make mistakes. He wants to leave and I am not going to make him leave AMA so that, when he does crash and burn, he can return for services. Discharge Summary Patient came, he saw, and left. No therapeutic benefit was accrued. Involuntary Hold Information 96 Hour Hold: 96 Hour Involuntary Admission: No Mental Status Exam MSE Comments: The patient is alert and oriented to person, place, time, and situation. Hygiene is good. Sensorium is clear. The patient maintains appropriate eye contact, is cooperative and relates well to me. Behavior shows no psychomotor agitation. Mood is calm and euthymic. Affect is tense, appropriate to his current mood. Thought processes are organized and free of racing, blocking or looseness of association. Speech is of normal rate and volume, without dysarthria, aprosody or pressure. There is no inordinate latency of response. The patient denies auditory or visual hallucinations or delusions. Thought processes are integrated and free of any racing, blocking or looseness of association. The patient denies suicidal or homicidal ideation, plan or intent. Memory is intact for recent and remote events. The patient is cooperative and relates well to me. Fund of knowledge is adequate given vocabulary. Insight and judgment were deemed to be impaired given his failed recognition of problems and no desire for treatment. Physical Exam 2 Narrative: EXAM NARRATIVE: The patient appeared thin but adequately nourished and normally developed. Vital signs as documented. Head exam is unremarkable. No scleral icterus or corneal arcus noted. Neck is without jugular venous distension, thyromegaly, or carotid bruits. Lungs are clear to auscultation and percussion. Heart normal sinus rhythm, no murmurs. Abdomen bland. Extremities no limitation of motion, no lower extremity edema. Neurological cranial nerves II to XII intact. No cerebellar, sensory or motor deficit noted. Mental status as above. Discharge Data Data Completed and Pending: Completed Studies During Hospitalization Category Date Time Status CT head wo con* 7 0450 Urgent Cat Scan 03/14/19 09:11 Completed XR chest 1V jag ble [id number] Urgent Exams 03/14/19 08:12 Completed Vitals: Last Vital Signs Temp 98.7 F 03/21/19 13:23 Pulse 72 03/21/19 13:23 Resp 18 03/21/19 13:23 BP 98/59 03/21/19 13:23 Pulse Ox 97 03/21/19 13:23 Discharge Plan Discharge Patient Disposition: Home, Self-Care Condition: Stable Prescriptions: Discontinued naproxen sodium [Aleve] 220 mg Tablet 220 mg PO BID PRN (Reason: Pain) RF: 0 Discharge Orders: Discharge Order (Routine); Ordered 03/21/19 Ordered By: Sandeep Hopkins Discharge Diet: Usual diet Discharge Activity: Resume usual activity Discharge Attestations NPU Time Spent in Discharge Care*: greater than 30 min Specific Discharge Activities: Specific discharge activities: educating patient (Ad nauseam about the error of his intent to leave.), discussing with senior case manager/social workers/dc planners, documenting/other paperwork and evaluating patient/reviewing data Status at Discharge: Cognitive status at discharge: mildly impaired cognition , Behavioral status at discharge: cooperative , Functional status at discharge: independent ambulation Overall status at discharge: patient is not back to baseline Coding Level of Care Code Acute Junior Analyst for Ethan Olvera Diagnoses Psychotic disorder F29 Schizophrenia, acute undifferentiated F20.3
[2019-03-21 21:01] VITALS: BP 100/64; PULSE 81; RESP 17; TEMP 36.9; O2SAT 97
[2019-03-21 21:15] VITALS: BP 100/64; PULSE 81; RESP 17; TEMP 36.9; O2SAT 97
--- NOTE | 2019-03-21 21:21 | PC.NURSE ---
Patient Discharged 03/21/19 @ 6658 Patient has no furthre questions, discharge paperwork and belongings given, no medications
== END 2019-03-21 21:20 | disposition home or self-care (01) | DRG 885 ==
LOC: ER 10:16 → NP 10:30
PROVIDERS: Admitting Provider Psychiatry & Neurology Psychiatry; Emergency Provider Family Medicine; Visit Provider Psychiatry & Neurology Psychiatry
DX: F23 Brief psychotic disorder (principal); R41.0 Disorientation, unspecified; Z79.899 Other long term (current) drug therapy; Z88.6 Allergy status to analgesic agent; F19.959 Other psychoactive substance use, unspecified with psychoactive substance-induced psychotic disorder, unspecified
CPT/HCPCS: 12345; 36415; 70450; 71045; 80053; 80307; 81003; 82009; 82140; 84443; 85025; 85378; 87804; 99283; A9270; J7030

== ENCOUNTER 2019-04-13 06:15 | Inpatient (IN) | payer SELFPAY ==
[2019-04-13 06:18] VITALS: BP 126/72; PULSE 75; RESP 16; TEMP 36.3; O2SAT 100; BMI 29.0
--- NOTE | 2019-04-13 06:22 | W.ED.PSYCH ---
HPI - Psych General: Chief Complaint: Psychiatric Symptoms Stated Complaint: MHE Time Seen by Provider: 04/13/19 06:22 History of Present Illness: HPI Narrative: 23-year-old male presents by EMS. He has a history of schizophrenia was hospitalized exactly 1 month ago for the same. He stopped taking his medications and demanded to leave at the end of that hospitalization at the end of 6 to 7 days. Reviewing the discharge notes they had recommended against it but the attending physician did not feel he had enough to place the patient on a hold. The discharge note does predict that the patient would return. He returns today he denies any suicidal homicidal thoughts he denies any hallucinations either auditory or visual. He is a little difficult to get any history from he is a very flat affect. He relates that he has contemporary thoughts. He states his been trying to get a hold of his uncle so he did have a place to stay but is unable to tell me where his uncle lives or how he has been he been in contact with his uncle. He denies any recent illness. When asked specifically why he came in he said he has difficulty with his thoughts. Onset (ago): year(s) Duration: constant History of same: Yes Relieving factors: medication Exacerbating factors: none Context: not taking psychiatric medications Associated psychiatric symptoms: racing thoughts Associated symptoms: Reports no associated symptoms; Deny auditory hallucinations, visual hallucinations, homicidal ideation or suicidal ideation Treatments prior to arrival: none Review of Systems Const: Denies: fever, chills, body aches, change in appetite, fatigue or malaise ENMT: Denies: throat pain, ear pain, nasal discharge or nasal congestion Card: Denies: chest pain, edema, shortness of breath on exertion or shortness of breath when lying down Resp: Denies: shortness of breath, productive cough or non-productive cough GI: Denies: abdominal pain, nausea, vomiting, vomiting blood, coffee grounds in vomit, diarrhea, constipation, bloating, blood in stool or black tarry stool : Denies: flank pain, painful urination, urinary frequency or urinary urgency Skin/Breast: Denies: rash or itching Psych: Reports: difficulty concentrating; Denies: visual hallucinations, auditory hallucinations, tactile hallucinations, suicidal ideation or homicidal ideation FORMERLY [facility], 1928–1983 ED PFSH: Medical History (Updated 04/16/19 @ 10:54 by Zev Batista DO) Depression Psychotic disorder Schizophrenia, acute undifferentiated Social History Smoking and tobacco status: current every day smoker Physical Exam Const: COMMON NORMALS: no apparent distress GENERAL APPEARANCE: cooperative and comfortable ORIENTATION/CONSCIOUSNESS: Yes awake, Yes oriented to person, Yes oriented to place and Yes oriented to time HENMT: COMMON NORMALS: normocephalic, head/scalp atraumatic, hearing grossly normal bilaterally and external ears normal HEAD & SCALP: normocephalic and atraumatic EXTERNAL EAR: Yes external ears normal Eye: COMMON NORMALS: PERRL, EOMs intact bilaterally, conjunctivae normal and no scleral icterus CONJUNCTIVA: Yes conjunctivae normal PUPIL: Yes PERRL Neck/C-Spine: COMMON NORMALS: full ROM, no lymphadenopathy, supple and no JVD Lymph: LYMPHATIC: no lymphadenopathy noted and no lymphedema noted Resp: COMMON NORMALS: normal respiratory effort, no retractions, no use of accessory muscles and clear to auscultation bilaterally AUSCULTATION: clear to auscultation bilaterally Cardio: COMMON NORMALS: no JVD, regular rate, regular rhythm and no murmurs RATE: regular rate RHYTHM: regular rhythm GI: COMMON NORMALS: soft to palpation and no hepatosplenomegaly AUSCULTATION: Yes normoactive bowel sounds PALPATION: Yes soft, No tender, No guarding and Yes no hepatosplenomegaly Extremity: COMMON NORMALS: normal to inspection, normal capillary refill, no clubbing, cyanosis or edema, no calf tenderness and no pedal edema Neuro: SENSORIUM/ORIENTATION: Yes oriented to person, Yes oriented to place and Yes oriented to time Skin: COMMON NORMALS: no rashes or lesions noted GENERAL SKIN EXAM: no rashes or lesions noted MDM - Psych Lab Data: Labs: Lab Results 04/13/19 04/13/19 04/13/19 Range/Units 07:04 07:55 07:55 WBC 12.4 H (4.0-10.0) 10^3/ uL RBC 5.09 (4.1-5.3) 10^6/u L Hgb 15.2 (11.7-16.6) g/dL Hct 46.5 (42.0-52.0) % MCV 91.4 (80-94) fL MCH 29.9 (28.0-34.0) pg MCHC 32.7 (30.0-36.0) g/dL RDW 13.0 (12.1-15.1) % Plt Count 275 (130-400) 10^3/c mm MPV 10.3 (7.4-10.4) fL Neut % (Auto) 49.7 % Lymph % (Auto) 38.6 % [place] % (Auto) 6.6 % Eos % (Auto) 3.8 % Baso % (Auto) 0.4 % Neut # (Auto) 6.2 (1.8-7.7) 10^3/u L Lymph # (Auto) 4.8 (0.8-4.8) 10^3/u L [place] # (Auto) 0.8 (0.2-0.9) 10^3/u L Eos # (Auto) 0.5 (0.0-0.8) 10^3/u L Baso # (Auto) 0.1 (0.0-0.1) 10^3/u L Nucleated RBC % (a uto) 0 % Nucleated RBCs # 0.0 /100WBC Sodium 137 (136-145) mmol/L Potassium 3.8 (3.5-5.1) mmol/L Chloride 99 (98-107) mmol/L Carbon Dioxide 26 (22-29) mmol/L Anion Gap 15.8 (5-19) BUN 11 (6-20) mg/dL Creatinine 0.7 (0.7-1.2) mg/dL GFR Calculation 138.6 H (90-130) mL/min Glucose 104 (65-115) mg/dL Calcium 9.7 (8.5-10.5) mg/dL Total Bilirubin 0.3 (0.15-1.2) mg/dL AST 18 (0-40) U/L ALT 23 (0-41) U/L Alkaline Phosphata se 84 (40-130) IU/L Total Protein 7.6 (6.6-8.7) g/dL Albumin 4.0 (3.5-5.2) g/dL Globulin 3.6 (1.3-4.6) g/dL Salicylates < 0.3 L (3-10) mg/dL Urine Opiates Scre en Negative (Negative) ng/mL Acetaminophen < 5.0 L (10-30) ug/mL Ur Barbiturates Sc reen Negative (Negative) ng/mL Ur Phencyclidine S crn Negative (Negative) ng/mL Ur Amphetamines Sc reen Negative (Negative) ng/mL U Benzodiazepines Scrn Negative (Negative) ng/mL Urine Cocaine Scre en Negative (Negative) ng/mL U Marijuana (THC) Screen Negative (Negative) ng/mL Ethyl Alcohol < 10 (0-10) mg/dL Discharge Plan Discharge Patient Disposition: Admitted As Inpatient Admit Provider: Morgan Sanchez Clinical Impression: Suicidal ideation, Acute psychosis, Chronic schizophrenia Condition: Stable Interventions: ED Discharge Assessment Last Done: 04/13/19 09:26 Discharge Date/Time: 04/13/19 10:11 Coding Level of Care Code ED Pick Out Hand for Ethan Fwabebe Exam Comprehensive
[2019-04-13 07:05] VITALS: RESP 15
[2019-04-13 07:33] LABS: Amphetamines Screen Urine Negative (Negative); Barbiturates Screen Urine Negative (Negative); Benzodiazepines Screen Urine Negative (Negative); Cocaine Screen Urine Negative (Negative); Opiate Screen Urine Negative (Negative); PCP Screen Urine Negative (Negative); THC Screen Urine Negative (Negative)
[2019-04-13 08:07] LABS: Basophils # 0.1 10^3/uL (0.0-0.1); Basophils % 0.4 %; Eosinophils # 0.5 10^3/uL (0.0-0.8); Eosinophils % 3.8 %; Hematocrit 46.5 % (42.0-52.0); Hemoglobin 15.2 g/dL (11.7-16.6); Lymphocytes # 4.8 10^3/uL (0.8-4.8); Lymphocytes % 38.6 %; Mean Corpuscular HGB Conc 32.7 g/dL (30.0-36.0); Mean Corpuscular Hemoglobin 29.9 pg (28.0-34.0); Mean Corpuscular Volume 91.4 fL (80-94); Mean Platelet Volume 10.3 fL (7.4-10.4); Monocytes # 0.8 10^3/uL (0.2-0.9); Monocytes % 6.6 %; Neutrophils # 6.2 10^3/uL (1.8-7.7); Neutrophils % 49.7 %; Nucleated Red Blood Cells % 0 %; Platelet Count 275 10^3/cmm (130-400); Red Blood Count 5.09 10^6/uL (4.1-5.3); White Blood Count 12.4 10^3/uL (4.0-10.0)
[2019-04-13 08:19] LABS: Alanine Aminotransferase 23 U/L (0-41); Alkaline Phosphatase 84 IU/L (40-130); Anion Gap 15.8 (5-19); Aspartate Amino Transferase 18 U/L (0-40); Blood Urea Nitrogen 11 mg/dL (6-20); Calcium 9.7 mg/dL (8.5-10.5); Carbon Dioxide 26 mmol/L (22-29); Chloride 99 mmol/L (98-107); Globulin 3.6 g/dL (1.3-4.6); Glomerular Filtration Rate 138.6 mL/min (90-130); Glucose 104 mg/dL (65-115); Potassium 3.8 mmol/L (3.5-5.1); Sodium 137 mmol/L (136-145); Total Bilirubin 0.3 mg/dL (0.15-1.2); Total Protein 7.6 g/dL (6.6-8.7)
[2019-04-13 08:21] LABS: Acetaminophen < 5.0 ug/mL (10-30); Alcohol Level < 10 mg/dL (0-10); Salicylate < 0.3 mg/dL (3-10)
[2019-04-13 09:26] VITALS: BP 118/74; PULSE 88; RESP 16; O2SAT 96
[2019-04-13 11:05] VITALS: BP 130/78; PULSE 83; RESP 18; TEMP 36.6; O2SAT 100
[2019-04-13 14:15] VITALS: BP 121/67; PULSE 75; RESP 20; TEMP 36.8; O2SAT 97
[2019-04-13 20:02] VITALS: BP 128/78; PULSE 80; RESP 16; TEMP 36.6; O2SAT 97
[2019-04-14 06:00] VITALS: BP 112/65; PULSE 77; RESP 14; TEMP 36.6; O2SAT 98
--- NOTE | 2019-04-14 08:05 | P.HP_ITS ---
Providers/Chief Complaint Admitting Physician: Morgan Sanchez MD Chief Complaint: schizophernia HPI NPU History of Present Illness Chief complaint: I've been admitted through the wrong portal. I should be adm itted To a different facility. History of present illness:Gen Richard is a 23 year old male Who is admitted under this physician's care almost exactly one month ago and an almost identical state. He presents today again in an extremely introverted state. During our interview, he would only make the statements above. He did so on several occasions. He otherwise did not answer any questions. His history is well known to this facility. He entered here one month ago and over a period of 6 days, he began taking medication and his psychosis improved. He has family in [place] who were able to detail a long history of substance abuse but with an overarching diagnosis of schizophrenia. The intent at that time was to try and discharge him in a manner that would send him back to [place] under the care of his family. However that did not happen. He again presents in an introverted psychotic state. He appears to be occupied with his internal thoughts. He is not attending to auditory hallucinations but does not deny that he is having them either. It is encouraging that he has come to the emergency room on his own indicating that at some point he was able to recognize that he was not able to meet his needs or remain safe. However he is not demonstrating any sign that he is cognitively capable of remaining safe and free of harm when left to his own supervision at this time. Historically, his family reported that he did well on Abilify 10 was 2 establish him on Abilify Maintenna. Records from his hospitalization one month ago are included in this evaluation. Laboratory Tests 03/14/19 03/14/19 04/13/19 08:02 08:25 07:04 Urine Opiates Screen Negative Negative Ur Barbiturates Screen Negative Negative Ur Phencyclidine Scrn Negative Negative Ur Amphetamines Screen Negative Negative U Benzodiazepines Scrn Negative Negative Urine Cocaine Screen Negative Negative U Marijuana (THC) Screen Negative Negative Ethyl Alcohol < 10 04/13/19 07:55 Urine Opiates Screen Ur Barbiturates Screen Ur Phencyclidine Scrn Ur Amphetamines Screen U Benzodiazepines Scrn Urine Cocaine Screen U Marijuana (THC) Screen Ethyl Alcohol < 10 ER physician note: HPI Narrative: 23-year-old male presents by EMS. He has a history of schizophrenia was hospitalized exactly 1 month ago for the same. He stopped taking his medications and demanded to leave at the end of that hospitalization at the end of 6 to 7 days. Reviewing the discharge notes they had recommended against it but the attending physician did not feel he had enough to place the patient on a hold. The discharge note does predict that the patient would return. He returns today he denies any suicidal homicidal thoughts he denies any hallucinations either auditory or visual. He is a little difficult to get any history from he is a very flat affect. He relates that he has contemporary thoughts. He states his been trying to get a hold of his uncle so he did have a place to stay but is unable to tell me where his uncle lives or how he has been he been in contact with his uncle. He denies any recent illne ss. When asked specifically why he came in he said he has difficulty with his thoughts. Mental health history: Data from admission on 03/14/2019 Chief complaint: I just hear the normal spatial vibrations. History of present illness: Gen Richard Is a quiet, reserved, male who was admitted with the reports from the emergency room listed below. Verbal report is that he was discovered sleeping in bushes and frigid cold weather. There have been reports that he has been observed standing by the side of the road staring into traffic. These are unconfirmed. Further data that we have collateral to the patient is that his possession he has multiple citations for trespassing all for the last week. Citations describe him as homeless and at one point he was trespassing on rainy days. He does have a independent driver's license dated from November 2018. On the other hand, [facility] 1 day providing people a different name. The patient provides little information himself. He states that he grew up in [place] and lived with his uncle. He states that he is not having thoughts of ending his life or anyone else's. He is unable to state anything specific that he wants. However he appeared to relax once he was told that he would not be discharged today. He denied that he was homeless but could not give a place where he lived.He states that he wants the right medication but cannot identify any specific medication once or target symptoms of any medication. Emergency room physician notes over the past week: 03/05/2019 HPI Narrative: 23 yo male with h/o migraines presents via EMS c/o abrupt onset headache that started this evening. He reports this is worse than his usual migraine, but is similar. He has been out in the cold this evening, states he has just been walking around. Also reporting anxious shakes . EMS reports they picked him up that police station, he had walked there. 03/06/2019 HPI narrative: 23 yo male presents stating he is here because his hands are cold and he is getting nervous convulsions everywhere . He reports fever, it was up there, I can feel it . He reports cough. He was brought in by EMS, picked up at the police station, was not in custody. When asked if he has been depressed he states I am feeling down due to some rehtorical stuff . He as been worried. He denies thoughts of harming himself or others. He states he has had out of body experiences . He does smoke cigarettes. Denies alcohol or drug use. 03/14/2019 HPI narrative: 23 yo male presnets with abd pain and shaking. Pt states that he is cough. Pt was found outside of Dr. Olson's office in the [facility]. Pt seems lethargic. Pt states that he smoked marijuana last night. Pt states that he abd pain has been present for 2 days, he had chest pain that is worsened when palpated. Hospital course: Hospital day #1:The patient is either unwilling or unable to participate in a reasonable mental status exam given the severity of weather outside and the inability to assess whether he has adequate problem solving skills to be able to remain safe, he will remain in the hospital overnight where we can further observe his interactions with peers, staff, and signs of psychosis. 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 Given his history, there is no way to differentiate whether his psychosis is a freestanding psychiatric diagnosis or secondary to his circuitous and long history of substance use.He has responded positively to Abilify in the past by family report. Plantars this time is to restart the Abilify and also provide now troxidone for craving as the Abilify and rehabilitation loan have not been sufficient to maintain him in a functional state. At this time, he would be considered an imminent risk to himself if he were allowed to leave the hospital. He displays inadequate problem-solving skills and insight to remain out of harm's way, maintain shoulder and acquire sustenance. Plan: Replace risperidone with Abilify to 10 mg daily and add naltrexone 50 mg daily to assess tolerance. Will increase as needed or tolerated. An affidavit for involuntary commitment has been placed on his chart to keep him in the hospital should he attempt to leave. Hospital day #4: Information provided from outside sources are patent this as a combination of substance-induced psychosis but also a significant history consistent with schizophrenia. We are treating this as schizophrenia as the primary diagnosis at this time. He seems to be responding well to the current medication with no side effects. Plan: Continue Abilify day #3 and naltrexone 50 mg daily. The patient was subsequently discharged the next day by another physician on no medications. ER physician note on 04/13/2019: HPI Narrative: 23-year-old male presents by EMS. He has a history of schizophrenia was hospitalized exactly 1 month ago for the same. He stopped taking his medications and demanded to leave at the end of that hospitalization at the end of 6 to 7 days. Reviewing the discharge notes they had recommended against it but the attending physician did not feel he had enough to place the patient on a hold. The discharge note does predict that the patient would return. He returns today he denies any suicidal homicidal thoughts he denies any hallucinations either auditory or visual. He is a little difficult to get any history from he is a very flat affect. He relates that he has contempo rary thoughts. He states his been trying to get a hold of his uncle so he did have a place to stay but is unable to tell me where his uncle lives or how he has been he been in contact with his uncle. He denies any recent illness. When asked specifically why he came in he said he has difficulty with his thoughts. Legal history:There is no history In [facility] public record arrests or felony convictions Past medical history:Unchanged from his admission one month ago: Medical history detailed in the emergency room nursing notes. Mental Status Exam: The patient is observed in his room shunning all interaction with peers and staff. He is eating his meal but refuses to go to the dining area. When asked to come to the physicians room, he walks very slowly. He gives no eye contact. However, he did respond as evidenced in the chief complaint which is an improvement from his last presentation. It also appeared that he was intending to the interview but just not responding. Appearance: hygiene is fair; no gross neurological deficits., gait is slow but unremarkable; AIMS=0 Speech: Speech is of normal rate and rhythm and easily understood. Thought processes: Thought processes Unable to be assessed. Judgment is not adequate for safety. Associations: intact Psychotic processes: He is guarded but not necessarily paranoid. He appears to be attending to internal stimuli but it is unclear whether he is experiencing auditory or visual hallucinations. Judgment: Insight is No. Problem solving skills are not adequate for safety. Orientation: Unknown Memory: Unknown Attention: The patient is alert and interpersonally engaged. Language: Verbalizations are coherent. Fund of knowledge: Unknown; however it is known that historically he has high cognitive function Affect/Mood: Affect is Flatwith aUnstatedmood. Psychosis: he appears to be shielded from dealing with reality by his internal processes and his refusal to interact with his environment appropriately. Diagnoses:Schizophrenia?Acute, disorganized Assessment:The patient at this time appears to be an imminent risk to self or others and a 96 hour involuntary commitment has been filed. The plan is to reestablish treatment with Abilify as he seemed to respond to this in the past. There is also unknown omentum of likely recent malnutrition and exposure so establishing a regular diurnal cycle and nutrition may have itself provide benefit. Abilify has been initiated at 10 mg daily. So far he is refusing. Treatment plan: Due to the psychiatric conditions and treatment listed in the Assessment and Plan - the patient requires continued hospitalization. Will provide a safe and therapeutic environment for patient.. Will continue inpatient treatment to allow for medication adjustment and monitoring. Will continue q15 min safety checks. Hospital day #1:The patient at this time appears to be an imminent risk to self or others and a 96 hour involuntary commitment has been filed. The plan is to reestablish treatment with Abilify as he seemed to respond to this in the past. There is also unknown omentum of likely recent malnutrition and exposure so establishing a regular diurnal cycle and nutrition may have itself provide benefit. Abilify has been initiated at 10 mg daily. So far he is refusing. Monitor patient's mood, sleep, appetite, and behavior closely. Encourage patient to participate in individual and group therapeutic sessions on the phan. Estimated length of stay 5 days The expected benefits and potential side effects of patient's psychiatric medications were discussed with the patient. The patient understands and consents to treatment.CRITERIA FOR DISCHARGE: stable on medications and no longer an im Meds NPU Home Medications Medication Instructions Recorded Confirmed Type acetaminophen [Tylenol] 325 mg PO QID PRN 04/13/19 04/13/19 History ibuprofen 200 mg PO Q6H PRN 04/13/19 04/13/19 History Allergies Allergy/AdvReac Type Severity Reaction Status Date / Time aspirin Allergy ALGY-Hives Verified 03/14/19 08:06 PFS NPU PFSH: Medical History (Updated 04/13/19 @ 06:36 by Zev Batista DO) Depression Psychotic disorder Schizophrenia, acute undifferentiated Social History Smoking and tobacco status: current every day smoker Vitals/I&O/Wt Last Vital Signs Temp 97.9 F 04/14/19 06:00 Pulse 77 04/14/19 06:00 Resp 14 04/14/19 06:00 BP 112/65 04/14/19 06:00 Pulse Ox 98 04/14/19 06:00 Weight last 48 hrs Weight 83.915 kg Data NPU : 04/13/19 07:55 04/13/19 07:55 Involuntary Hold Information 96 Hour Hold: 96 Hour Involuntary Admission: No Attestations NPU Medical Necessity Statement*: Patient will remain in the hospital 6-7 midnights for the duration of his 96 hour involuntary commitment. Coding Level of Care Code Acute Feeder Catcher for Ethan Olvera
--- NOTE | 2019-04-14 08:22 | P.PN_ITS ---
Subjective NPU Subjective: Interval history: Patient was able to verbalize today. He is not considered to be a reliable source but did admit that he had prior psychiatric history. No further information was provided. Mental Status Exam MSE Comments: Mental Status Exam: The patient is alert interpersonally engaged male appearing approximately his stated age. Verbalizations are 2 one-word or short phrases. Most times he will simply not answer. He will answer questions with nods and it seems as though he is aware of when he is being asked important questions. There are no tics or tremors. There is no attention to internal stimuli. Appearance: hygiene is fair; no gross neurological deficits., gait is unremarkable; AIMS=0 Speech: Speech is of normal rate and rhythm and easily understood. Unable to assess vocabulary Thought processes: Thought processes are Unable to be fully assessed. Answers to questions are on topic though he continues to provide no data and speaks in vague generalizations. Judgment is adequate for safety. Psychotic processes: Auditory and visual hallucinations are denied. Judgment: Insight is fair. Problem solving skills are indeterminate. Orientation: He appears to be oriented to situation Memory: Unable to test Attention: The patient is alert and interpersonally engaged. Language: Verbalizations are coherent. Fund of knowledge: Fund of knowledge is Not assessed Affect/Mood: Affect is constriced but at the end of the interview he was able to smile slightly with a undeclared mood. Denied suicidal ideation Affective range Flat Psychosis: Unable to be assessed Vitals/I&O/Wt Last Vital Signs Temp 97.9 F 04/14/19 06:00 Pulse 77 04/14/19 06:00 Resp 14 04/14/19 06:00 BP 112/65 04/14/19 06:00 Pulse Ox 98 04/14/19 06:00 Weight last 48 hrs Weight 83.915 kg Data NPU : 04/13/19 07:55 04/13/19 07:55 A&P Additional A&P Information Diagnoses: Psychotic disorder?not otherwise specified Delirium secondary to unknown etiology Assessment: Increasingly this seems to be a substance induced psychosis. Given his history, there is no way to differentiate whether his psychosis is a freestanding psychiatric diagnosis or secondary to his circuitous and long history of substance use.He has responded positively to Abilify in the past by f camiy report. Plantars this time is to restart the Abilify and also provide now troxidone for craving as the Abilify and rehabilitation loan have not been sufficient to maintain him in a functional state. At this time, he would be considered an imminent risk to himself if he were allowed to leave the hospital. He displays inadequate problem-solving skills and insight to remain out of harm's way, maintain shoulder and acquire sustenance. Treatment plan: Due to the psychiatric conditions and treatment listed in the Assessment and Plan - the patient requires continued hospitalization. Will provide a safe and therapeutic environment for patient.. Will continue inpatient treatment to allow for medication adjustment and monitoring. Will continue q15 min safety checks. Hospital day #1:The patient is either unwilling or unable to participate in a reasonable mental status exam given the severity of weather outside and the inability to assess whether he has adequate problem solving skills to be able to remain safe, he will remain in the hospital overnight where we can further observe his interactions with peers, staff, and signs of psychosis. 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 Given his history, there is no way to differentiate whether his psychosis is a freestanding psychiatric diagnosis or secondary to his circuitous and long history of substance use.He has responded positively to Abilify in the past by family report. Plantars this time is to restart the Abilify and also provide now troxidone for craving as the Abilify and rehabilitation loan have not been sufficient to maintain him in a functional state. At this time, he would be considered an imminent risk to himself if he were allowed to leave the hospital. He displays inadequate problem-solving skills and insight to remain out of harm's way, maintain shoulder and acquire sustenance. Plan: Replace risperidone with Abilify to 10 mg daily and add naltrexone 50 mg daily to assess tolerance. Will increase as needed or tolerated. An affidavit for involuntary commitment has been placed on his chart to keep him in the hospital should he attempt to leave. Involuntary Hold Information 96 Hour Hold: 96 Hour Involuntary Admission: No Attestations NPU Medical Necessity Statement*: Patient will remain in the hospital another 4-5 nights with hopeful improvement of psychosis and placement correlated with family. Coding Level of Care Code Acute Market Development Manager for Ethan Olvera
[2019-04-14] MEDS: naltrexone hcl 50 mg Tablet PO (09:27)
[2019-04-14] MEDS: ARIPiprazole 10 mg Tablet PO (09:27)
[2019-04-14 14:00] VITALS: BP 117/71; PULSE 85; RESP 20; TEMP 36.6; O2SAT 97
--- NOTE | 2019-04-14 21:07 | PM.NPN ---
Subjective NPU Subjective: Interval history: Subjective: Interval history: Patient was able to verbalize today. He is not considered to be a reliable source but did admit that he had prior psychiatric history. No further information was provided. Mental Status Exam MSE Comments: Mental Status Exam MSE Comments: Mental Status Exam: The patient is alert interpersonally engaged male appearing approximately his stated age. Verbalizations are 2 one-word or short phrases. Most times he will simply not answer. He will answer questions with nods and it seems as though he is aware of when he is being asked important questions. There are no tics or tremors. There is no attention to internal stimuli. Appearance: hygiene is fair; no gross neurological deficits., gait is unremarkable; AIMS=0 Speech: Speech is of normal rate and rhythm and easily understood. Unable to assess vocabulary Thought processes: Thought processes are Unable to be fully assessed. Answers to questions are on topic though he continues to provide no data and speaks in vague generalizations. Judgment is adequate for safety. Psychotic processes: Auditory and visual hallucinations are denied. Judgment: Insight is fair. Problem solving skills are indeterminate. Orientation: He appears to be oriented to situation Memory: Unable to test Attention: The patient is alert and interpersonally engaged. Language: Verbalizations are coherent. Fund of knowledge: Fund of knowledge is Not assessed Affect/Mood: Affect is constriced but at the end of the interview he was able to smile slightly with a undeclared mood. Denied suicidal ideation Affective range Flat Psychosis: Unable to be assessed Vitals/I&O/Wt Last Vital Signs Temp 98 F 04/14/19 14:00 Pulse 85 04/14/19 14:00 Resp 20 H 04/14/19 14:00 BP 117/71 04/14/19 14:00 Pulse Ox 97 04/14/19 14:00 Weight last 48 hrs Weight 83.915 kg Data NPU : 04/13/19 07:55 04/13/19 07:55 A&P Additional A&P Information Assessment: Increasingly this seems to be a substance induced psychosis. Given his history, there is no way to differentiate whether his psychosis is a freestanding psychiatric diagnosis or secondary to his circuitous and long history of substance use.He has responded positively to Abilify in the past by family report. Plantars this time is to restart the Abilify and also provide now troxidone for craving as the Abilify and rehabilitation loan have not been sufficient to maintain him in a functional state. At this time, he would be considered an imminent risk to himself if he were allowed to leave the hospital. He displays inadequate problem-solving skills and insight to remain out of harm's way, maintain shoulder and acquire sustenance. Treatment plan: Due to the psychiatric conditions and treatment listed in the Assessment and Plan - the patient requires continued hospitalization. Will provide a safe and therapeutic environment for patient.. Will continue inpatient treatment to allow for medication adjustment and monitoring. Will continue q15 min safety checks. Hospital day #1:The patient is either unwilling or unable to participate in a reasonable mental status exam given the severity of weather outside and the inability to assess whether he has adequate problem solving skills to be able to remain safe, he will remain in the hospital overnight where we can further observe his interactions with peers, staff, and signs of psychosis. 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 Given his history, there is no way to differentiate whether his psychosis is a freestanding psychiatric diagnosis or secondary to his circuitous and long history of substance use.He has responded positively to Abilify in the past by family report. Plantars this time is to restart the Abilify and also provide now troxidone for craving as the Abilify and rehabilitation loan have not been sufficient to maintain him in a functional state. At this time, he would be considered an imminent risk to himself if he were allowed to leave the hospital. He displays inadequate problem-solving skills and insight to remain out of harm's way, maintain shoulder and acquire sustenance. Plan: Replace risperidone with Abilify to 10 mg daily and add naltrexone 50 mg daily to assess tolerance. Will increase as needed or tolerated. An affidavit for involuntary commitment has been placed on his chart to keep him in the hospital should he attempt to leave. Involuntary Hold Information 96 Hour Hold: 96 Hour Involuntary Admission: No Attestations NPU Medical Necessity Statement*: Pt will remain in hospital for 6-7 more nights until his psychosis clears. Coding Level of Care Code Acute Funeral Home Location Manager for Ethan Olvera
--- NOTE | 2019-04-14 21:12 | PM.NPN ---
Subjective NPU Subjective: Interval history: This document was created at the command of medical records to rectify a missing document for [facility] admission. this document is for the worng admission and is in error. There is no document but I cannot figure out how to get the EMR to delete it. But if I don't sign it, i natalie lcontinue to get warnings of delinquencies from medical records. So I am signing a blank, meaningless document. 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 Given his history, there is no way to differentiate whether his psychosis is a freestanding psychiatric diagnosis or secondary to his circuitous and long history of substance use.He has responded positively to Abilify in the past by family report. Plantars this time is to restart the Abilify and also provide now troxidone for craving as the Abilify and rehabilitation loan have not been sufficient to maintain him in a functional state. At this time, he would be considered an imminent risk to himself if he were allowed to leave the hospital. He displays inadequate problem-solving skills and insight to remain out of harm's way, maintain shoulder and acquire sustenance. Treatment plan: Due to the psychiatric conditions and treatment listed in the Assessment and Plan - the patient requires continued hospitalization. Will provide a safe and therapeutic environment for patient.. Will continue inpatient treatment to allow for medication adjustment and monitoring. Will continue q15 min safety checks. Hospital day #1:The patient is either unwilling or unable to participate in a reasonable mental status exam given the severity of weather outside and the inability to assess whether he has adequate problem solving skills to be able to remain safe, he will remain in the hospital overnight where we can further observe his interactions with peers, staff, and signs of psychosis. 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 Given his history, there is no way to differentiate whether his psychosis is a freestanding psychiatric diagnosis or secondary to his circuitous and long history of substance use.He has responded positively to Abilify in the past by family report. Plantars this time is to restart the Abilify and also provide now troxidone for craving as the Abilify and rehabilitation loan have not been sufficient to maintain him in a functional state. At this time, he would be considered an imminent risk to himself if he were allowed to leave the hospital. He displays inadequate problem-solving skills and insight to remain out of harm's way, maintain shoulder and acquire sustenance. Plan: Replace risperidone with Abilify to 10 mg daily and add naltrexone 50 mg daily to assess tolerance. Will increase as needed or tolerated. An affidavit for involuntary commitment has been placed on his chart to keep him in the hospital should he attempt to leave. Involuntary Hold Information 96 Hour Hold: 96 Hour Involuntary Admission: No Attestations NPU Medical Necessity Statement*: Pt will remain in hospital 4-6 more days until his psychosis is resolved. Coding Level of Care Code Acute Outer Diameter Grinder Tool for Ethan Olvera
[2019-04-14 21:34] VITALS: BP 108/69; PULSE 65; RESP 16; TEMP 37.1; O2SAT 97
[2019-04-15 05:59] VITALS: BP 116/71; PULSE 66; RESP 17; TEMP 36.9; O2SAT 97
[2019-04-15] MEDS: naltrexone hcl 50 mg Tablet PO (08:11)
--- NOTE | 2019-04-15 13:06 | P.PN_ITS ---
Subjective NPU Subjective: Interval history: patient continues to report that he came to the wrong portal. However he only makes this statement after considerable period of time attending to internal stimuli during our discussion. He was able to report what he had before meals today. Not able to report what happened after he left the hospital on his last admission, where he has been, where he intends to go after he leaves here or anything of a personal nature that would demonstrate his capacity for self determination and decision-making. he denied the presence of suicidal or homicidal ideation. He denied the presence of auditory and visual hallucinations. Mental Status Exam MSE Comments: Mental Status Exam: The patient is observed in his room eating by himself and then returning to sleep. He gives no eye contact. He was much more verbally interactive but remained an unreliable source of information. Appearance: hygiene is fair; no gross neurological deficits., gait is slow but unremarkable; AIMS=0 Speech: Speech is of normal rate and rhythm and easily understood. Thought processes: Thought processes Unable to be assessed. Judgment is not adequate for safety. Associations: intact Psychotic processes: He is guarded but not necessarily paranoid. He appears to be attending to internal stimuli but it is unclear whether he is experiencing auditory or visual hallucinations. Judgment: Insight is poor. Problem solving skills are not adequate for safety. Orientation: oriented to self and situation Memory: immediate and adjunct faculty for medical terminology memory intact Attention: The patient is alert and interpersonally engaged. Language: Verbalizations are coherent. Fund of knowledge: Unknown; however it is known that historically he has high cognitive function Affect/Mood: Affect is Flatwith aUnstatedmood. Psychosis: he appears to be shielded from dealing with reality by his internal processes and his refusal to interact with his environment appropriately. Vitals/I&O/Wt Last Vital Signs Temp 98.5 F 04/15/19 05:59 Pulse 66 04/15/19 05:59 Resp 17 04/15/19 05:59 BP 116/71 04/15/19 05:59 Pulse Ox 97 04/15/19 05:59 Data NPU : 04/13/19 07:55 04/13/19 07:55 A&P Additional A&P Information Diagnoses:Schizophrenia?Acute, disorganized Assessment:The patient at this time appears to be an imminent risk to self or others and a 96 hour involuntary commitment has been filed. The plan is to reestablish treatment with Abilify as he seemed to respond to this in the past. There is also unknown omentum of likely recent malnutrition and exposure so establishing a regular diurnal cycle and nutrition may have itself provide benefit. Abilify has been initiated at 10 mg daily. So far he is refusing. Treatment plan: Due to the psychiatric conditions and treatment listed in the Assessment and Plan - the patient requires continued hospitalization. Will provide a safe and therapeutic environment for patient.. Will continue inpatient treatment to allow for medication adjustment and monitoring. Will continue q15 min safety checks. Hospital day #1:The patient at this time appears to be an imminent risk to self or others and a 96 hour involuntary commitment has been filed. The plan is to reestablish treatment with Abilify as he seemed to respond to this in the past. There is also unknown omentum of likely recent malnutrition and exposure so establishing a regular diurnal cycle and nutrition may have itself provide benefit. Abilify has been initiated at 10 mg daily. So far he is refusing. hospital day #2: The patient appears a little bit more functional and independent than he did 24 hours ago. He has refused the Abilify over the past 24 hours though he did take the naltrexone. He has been getting copious sleep is improvements in mental status then are more likely due to improved self-care, recuperative sleep, and adequate nutrition rather than medication effect. Plan: Abilify is changed to 15 mg on a single bedtime dose and hopefully this will improve compliance. Monitor patient's mood, sleep, appetite, and behavior closely. Encourage patient to participate in individual and group therapeutic sessions on the phan. Estimated length of stay 5 days The expected benefits and potential side effects of patient's psychiatric medications were discussed with the patient. The patient understands and consents to treatment.CRITERIA FOR DISCHARGE: stable on medications and no longer an im Involuntary Hold Information 96 Hour Hold: 96 Hour Involuntary Admission: No Attestations NPU Medical Necessity Statement*: patient remained in the hospital another for 5 nights with resolution of psychosis. Coding Level of Care Code Acute Rural Electrification Engineer for Ethan Olvera
[2019-04-15 14:00] VITALS: BP 105/61; PULSE 86; RESP 18; TEMP 36.7; O2SAT 97
[2019-04-15] MEDS: ARIPiprazole 10 mg Tablet 15 MG PO (20:27)
[2019-04-15] MEDS: trazodone 50 mg Tablet PO (20:30)
[2019-04-15 21:43] VITALS: BP 122/62; PULSE 78; RESP 20; TEMP 37.1; O2SAT 97
[2019-04-16 06:00] VITALS: BP 102/67; PULSE 58; RESP 20; TEMP 36.6; O2SAT 98
--- NOTE | 2019-04-16 07:49 | P.PN_ITS ---
Subjective NPU Subjective: Interval history: I think I'm ready to go home. Unable to state where home is. Unable to state where he would go or how he would get there. . Medications: Medication Review Details: He was compliant with Abilify last evening according ot records. Mental Status Exam MSE Comments: Mental Status Exam: The patient is awakened in hi sbed in AM after breakfast. He gives no eye contact. Appearance: hygiene is fair; no gross neurological deficits., gait is slow but unremarkable; AIMS=0 Speech: Speech is of normal rate and rhythm and easily understood. Thought processes: Thought processes Unable to be assessed. Judgment is not adequate for safety. Associations: intact Psychotic processes: He is guarded but not necessarily paranoid. He appears to be attending to internal stimuli but it is unclear whether he is experiencing auditory or visual hallucinations. Judgment: Insight is poor. Problem solving skills are not adequate for safety. Orientation: oriented to self and situation Memory: immediate and long wall mining machine tender memory intact Attention: The patient is alert and interpersonally engaged. Language: Verbalizations are coherent. Fund of knowledge: Unknown; however it is known that historically he has high cognitive function Affect/Mood: Affect is Flat with Unstatedmood. Psychosis: he appears to be shielded from dealing with reality by his internal processes and his refusal to interact with his environment appropriately. Cognition: Patient Appearance: Appropriate Level of Consciousness: Awake, Alert, Appropriate and Follows Commands Patient Cognition Impaired: No Ability to Follow Directions: Fair Patient Orientation (long list): Person, Place, Time, Name and Age Comprehension Ability: Mild Impairment Hallucination Type: None Delusion Description: Not Present Thought Process: Appropriate Affect: Affect Description: Guarded Behavior: Patient Behavior: Appropriate Speech Pattern: Appropriate Vitals/I&O/Wt Last Vital Signs Temp 97.9 F 04/16/19 06:00 Pulse 58 L 04/16/19 06:00 Resp 20 H 04/16/19 06:00 BP 102/67 04/16/19 06:00 Pulse Ox 98 04/16/19 06:00 Data NPU : 04/13/19 07:55 04/13/19 07:55 A&P Additional A&P Information Diagnoses:Schizophrenia?Acute, disorganized Assessment:The patient at this time appears to be an imminent risk to self or others and a 96 hour involuntary commitment has been filed. The plan is to reestablish treatment with Abilify as he seemed to respond to this in the past. There is also unknown omentum of likely recent malnutrition and exposure so establishing a regular diurnal cycle and nutrition may have itself provide benefit. Abilify has been initiated at 10 mg daily. So far he is refusing. Treatment plan: Due to the psychiatric conditions and treatment listed in the Assessment and Plan - the patient requires continued hospitalization. Will provide a safe and therapeutic environment for patient.. Will continue inpatient treatment to allow for medication adjustment and monitoring. Will continue q15 min safety checks. Hospital day #1:The patient at this time appears to be an imminent risk to self or others and a 96 hour involuntary commitment has been filed. The plan is to reestablish treatment with Abilify as he seemed to respond to this in the past. There is also unknown omentum of likely recent malnutrition and exposure so establishing a regular diurnal cycle and nutrition may have itself provide benefit. Abilify has been initiated at 10 mg daily. So far he is refusing. hospital day #2: The patient appears a little bit more functional and independent than he did 24 hours ago. He has refused the Abilify over the past 24 hours though he did take the naltrexone. He has been getting copious sleep is improvements in mental status then are more likely due to improved self-care, recuperative sleep, and adequate nutrition rather than medication effect. Plan: Abilify is changed to 15 mg on a single bedtime dose and hopefully this will improve compliance. HD#3: Pt again told that until her could explain where he was going, how he would get there, and his plans following discharge, it was assumed that he was not thinking clearly enough to be safe on his own and needed to continue his 96 hr commitment. Monitor patient's mood, sleep, appetite, and behavior closely. Encourage patient to participate in individual and group therapeutic sessions on the phan. Estimated length of stay 5 days The expected benefits and potential side effects of patient's psychiatric medications were discussed with the patient. The patient understands and consents to treatment.CRITERIA FOR DISCHARGE: stable on medications and no longer an im Involuntary Hold Information 96 Hour Hold: 96 Hour Involuntary Admission: No Attestations NPU Medical Necessity Statement*: Pt arsenio krishna in hospital 4-5- more nights until he is no longer an imminent risk to self or others Coding Level of Care Code Acute Supervisor Special Education for Ethan Olvera
[2019-04-16] MEDS: naltrexone hcl 50 mg Tablet PO (10:38)
[2019-04-16 13:39] VITALS: BP 102/61; PULSE 72; RESP 18; TEMP 36.8
[2019-04-16] MEDS: trazodone 50 mg Tablet PO (21:53)
[2019-04-16 22:00] VITALS: BP 103/61; PULSE 65; RESP 18; TEMP 36.8; O2SAT 98
[2019-04-17 06:00] VITALS: BP 102/68; PULSE 59; RESP 18; TEMP 36.8; O2SAT 97
[2019-04-17] MEDS: naltrexone hcl 50 mg Tablet PO (08:35)
--- NOTE | 2019-04-17 13:28 | P.PN_ITS ---
Subjective NPU Subjective: Interval history: The patient has not much to say today except that he is ready to go home. He was deemed unsafe for discharge and a potential danger to himself or others and has incurred a 96-hour involuntary hospitalization, ending on the . Attempts to elaborate on his current feelings and thoughts are met with silence and blocked thinking. He stares at the floor. Medications: Reviewed: Yes Medication Review Details: He is currently on naltrexone 50 mg p.o. daily and aripiprazole 15 mg p.o. each evening at bedtime. His mother called today and wanted to meet with me, which I am happy to do. She remembers a medication which was helpful to her son. I see Cody in the record. That may be what she is referring to. We shall see. Mental Status Exam MSE Comments: This is a 23-year-old male who is very withdrawn and makes no eye contact. Grooming is disheveled but hygiene is fair.there are no gross neurological deficits. His gait is slow but unremarkable. Speech is of normal rate and rhythm and easily understood. It is very limited. His responses are often 1 or 2 words and very rarely an entire short sentence. Thought processes Unable to be assessed. Judgment and insight are not adequate for safety. Psychotic processes: He is guarded but not necessarily paranoid. He appears to be attending to internal stimuli but it is unclear whether he is experiencing auditory or visual hallucinations. Judgment: Insight is poor. Problem solving skills are not adequate for safety. Orientation: oriented to self and situation Memory: Unable to assess. The patient is alert but interpersonally disengaged. Fund of knowledge isunknown; however it is known that historically he has high cognitive function. Affect is Flat with unstated mood. Vitals/I&O/Wt Last Vital Signs Temp 98.2 F 04/17/19 06:00 Pulse 59 L 04/17/19 06:00 Resp 18 04/17/19 06:00 BP 102/68 04/17/19 06:00 Pulse Ox 97 04/17/19 06:00 Weight last 48 hrs Weight 193 lb 9.6 oz Data NPU : 04/13/19 07:55 04/13/19 07:55 A&P Additional A&P Information Diagnoses:Schizophrenia?Acute, disorganized The patient at this time appears to be an imminent risk to self or others and a 96-hour involuntary commitment has been filed. The plan is to reestablish treatment with Abilify as he seemed to respond to this in the past. There is also unknown but likely recent malnutrition and exposure so establishing a regular diurnal cycle and nutrition may have itself provide benefit. Abilify has been initiated at 10 mg daily. So far he is refuses it. Treatment plan: Due to the psychiatric conditions and treatment listed in the Assessment and Plan - the patient requires continued hospitalization. Will provide a safe and therapeutic environment for patient.. Will continue inpatient treatment to allow for medication adjustment and monitoring. Will continue q15 min safety checks. Involuntary Hold Information 96 Hour Hold: 96 Hour Involuntary Admission: No 96 Hour Hold Start Date: 04/15/19 96 Hour Hold Start Time: 10:07 96 Hour Hold Ending Date: 04/21/19 96 Hour Hold Ending Time: 10:07 Attestations NPU Medical Necessity Statement*: This patient is clearly not safe for discharge. He is under a 96-hour involuntary hospitalization order. I anticipate 7-10 midnights additional stay. Time Spent in Patient Care: Greater than 35 minutes (>than 50% of time spent in counselling and/or direct pt care on unit) . Coding Level of Care Code Acute Treatment Technician for Ethan Olvera
[2019-04-17 14:00] VITALS: BP 110/80; PULSE 62; RESP 18; TEMP 36.7; O2SAT 98
[2019-04-17] MEDS: ARIPiprazole 10 mg Tablet 15 MG PO (20:23)
[2019-04-17 21:57] VITALS: BP 103/66; PULSE 73; RESP 21; TEMP 36.8; O2SAT 99
[2019-04-18 06:00] VITALS: BP 98/58; PULSE 64; RESP 17; TEMP 36.9; O2SAT 96
[2019-04-18] MEDS: naltrexone hcl 50 mg Tablet PO (09:22)
[2019-04-18 14:00] VITALS: BP 131/78; PULSE 68; RESP 18; TEMP 36.8; O2SAT 98
--- NOTE | 2019-04-18 15:32 | P.PN_ITS ---
Subjective NPU Subjective: Interval history: The patient is much more accessible today. He stands and looks you straight in the eye. He speaks normally and feels very comfortable. I raised the issue of his parents wanted to take him home. He says he would rather stay here. As for the aripiprazole, it appears to have been helpful. Medications: Reviewed: Yes Medication Review Details: The patient presently is on naltrexone 50 mg p.o. daily and aripiprazole 15 mg p.o. nightly. This seems to be a good combination for him and he has had no side effects. Mental Status Exam MSE Comments: The patient is transformed today. His mood is calm and appears to be euthymic. Affect is euthymic and at no time does he seem disgruntled or withdrawn. Thought processes are clear linear and organized. They are free of racing, blocking (which was pronounced yesterday) or looseness of association. Speech is of normal rate and volume, without dysarthria, and inordinate latency of response (again pronounced yesterday), aprosody or pressure. Cognitive functions seem to be integrated. He is fully oriented he can raise in his way through his preferences regarding his health care. Insight and judgment appear to be returning. He denies any suicidal or homicidal ideation, plan or intent. Behavior is free of any oddity. Vitals/I&O/Wt Last Vital Signs Temp 98.3 F 04/18/19 14:00 Pulse 68 04/18/19 14:00 Resp 18 04/18/19 14:00 BP 131/78 04/18/19 14:00 Pulse Ox 98 04/18/19 14:00 Weight last 48 hrs Weight 193 lb 9.6 oz Data NPU : 04/13/19 07:55 04/13/19 07:55 A&P Additional A&P Information Patient is coming out of his fog. His acute, almost catatonic, psychotic episode appears to be resolving under the effect of the aripiprazole. 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 The patient will be seen daily by multidisciplinary team. Pharmacotherapy will be pursued, adjusted and monitored according to indication, tolerance and response. Discharge plan will include follow-up outpatient psychiatric care. He says he does not want to go back to [place] with his parents. He has to resolve that with them. Involuntary Hold Information 96 Hour Hold: 96 Hour Involuntary Admission: No 96 Hour Hold Start Date: 04/15/19 96 Hour Hold Start Time: 10:07 96 Hour Hold Ending Date: 04/21/19 96 Hour Hold Ending Time: 10:07 Attestations NPU Medical Necessity Statement*: This is the first status patient is actually been with us. Further stabilization and monitoring is clearly indicated. I anticipate 3-4 additional midnights. Time Spent in Patient Care: Greater than 35 minutes (>than 50% of time spent in counselling and/or direct pt care on unit) . Coding Level of Care Code Acute Integrated Logistics Support Manager for Ethan Olvera
[2019-04-18 20:23] VITALS: BP 131/78; PULSE 68; RESP 18; TEMP 36.8; O2SAT 98
[2019-04-18] MEDS: ARIPiprazole 10 mg Tablet 15 MG PO (21:03)
[2019-04-18 22:00] VITALS: BP 115/78; PULSE 64; RESP 18; TEMP 36.9; O2SAT 99
[2019-04-19 06:00] VITALS: BP 112/77; PULSE 65; RESP 22; TEMP 36.8; O2SAT 99
[2019-04-19] MEDS: naltrexone hcl 50 mg Tablet PO (09:00)
[2019-04-19 14:00] VITALS: BP 110/66; PULSE 63; RESP 20; TEMP 36.8; O2SAT 98
--- NOTE | 2019-04-19 16:29 | P.DS_ITS ---
Diagnoses at Discharge Discharge Diagnosis (1) Chronic schizophrenia: Status: Acute Reason for Visit Reason for Visit: Reason For Visit: formerly [facility], [facility] Hospital Course Hospital Course It is as if the [place] kicked in overnight. He is definitely not the same patient I saw 2 days ago. I did meet with the patient's parents and gave them what support I could. I have spent several sessions with them. They are devoted and concerned and I did what I could to educate them about schizophrenia and its possible causation. He has agreed to go with them to [place] and seek a longterm there. We will give him a month supply of his meds. Naltrexone 50 mg p.o. nightly Aripiprazole 15 mg p.o. nightly Involuntary Hold Information 96 Hour Hold: 96 Hour Involuntary Admission: No 96 Hour Hold Start Date: 04/15/19 96 Hour Hold Start Time: 10: 96 Hour Hold Ending Date: 04/21/19 96 Hour Hold Ending Time: 10:07 Mental Status Exam MSE Comments: Presents at his stated age, clean and neat. His mood is calm and appears to be euthymic. Affect is euthymic and at no time does he seem disgruntled or withdrawn. Thought processes are clear linear and organized. They are free of racing, blocking (which was pronounced yesterday) or looseness of association. Speech is of normal rate and volume, without dysarthria, and inordinate latency of response (again pronounced yesterday), aprosody or pressure. Cognitive functions seem to be integrated. He is fully oriented he can reason in his way through his preferences regarding his health care. Insight and judgment appear to be returning. He denies any suicidal or homicidal ideation, plan or intent. Behavior is free of any oddity. Discharge Data Vitals: Last Vital Signs Temp 98.2 F 04/19/19 14:00 Pulse 63 04/19/19 14:00 Resp 20 H 04/19/19 14:00 BP 110/66 04/19/19 14:00 Pulse Ox 98 04/19/19 14:00 Discharge Plan Discharge Patient Disposition: Home, Self-Care Condition: Stable Prescriptions: New naltrexone 50 mg Tablet 50 mg PO DAILY Qty: 30 RF: 1 aripiprazole 10 mg Tablet 15 mg PO BEDTIME Qty: 30 RF: 1 Discontinued acetaminophen [Tylenol] 325 mg Tablet 325 mg PO QID PRN (Reason: Pain) RF: 0 ibuprofen 200 mg Tablet 200 mg PO Q6H PRN (Reason: Pain) RF: 0 Discharge Orders: Discharge Order (Routine); Ordered 04/19/19 Ordered By: Sandeep Hopkins Discharge Diet: Usual diet Discharge Activity: Resume usual activity Activity Restrictions/Additional Instructions: It is recommended to start early in the day to establish housing option: It is recommended that you go as early in the morning as possible in order to get help with housing... [facility] [address] [place], [place] [id number] Hours of Operation: Thursday-Thursday 8:30 AM - 5:00 PM [facility] exists to prevent and end homelessness through coordination of resources and navigation of services in [facility] in [facility]. If you are at risk of becoming homeless or currently without a safe, stable place to stay, call [phone] or visit us at the [facility] located at [address] One of the [facility] service coordinators will meet with you to help identify options that may meet your individual needs. The [place] [facility] is acknowledging that the current systems of services can be confusing and overwhelming, and to prevent and end homelessness by offering coordination of services and assistance in navigating the various systems of service. [facility] provides a central point of entry for many of the shelters and longterm related services in the [facility] geographic area. Additionally, [facility] maintains a resource directory for other social service organizations. Do follow-up within 3 days of discharge, if possible: [facility] Hours: 7:30 a.m -3:30 (go as early in the day as possible and request outpatient mental health services) No call-ahead is necessary, just walk in and be seen. Bring your I.D. and insurance information, if you have it. We accept Medicare, Medicaid, numerous private insurance providers and accept self-pay on a sliding scale for those who qualify. Discharge Attestations NPU Time Spent in Discharge Care*: greater than 30 min Specific Discharge Activities: Specific discharge activities: educating patie nt, educating and/or supporting family/caregiver, discussing with case finishing machine adjuster/social workers/dc planners, documenting/other paperwork and evaluating patient/reviewing data Status at Discharge: Cognitive status at discharge: mildly impaired cognition , Behavioral status at discharge: cooperative , Coding Level of Care Code Acute Lead Burner Supervisor for Chg Fwd Diagnoses Chronic schizophrenia F20.9
[2019-04-19 16:35] VITALS: BP 110/66; PULSE 63; RESP 20; TEMP 36.8; O2SAT 98
[2019-04-19 16:44] VITALS: BP 110/66; PULSE 63; RESP 20; TEMP 36.8; O2SAT 98
== END 2019-04-19 17:01 | disposition home or self-care (01) | DRG 885 ==
LOC: ER 06:46 → NP 09:27
PROVIDERS: Admitting Provider Psychiatry & Neurology Psychiatry; Emergency Provider Family Medicine; Visit Provider Psychiatry & Neurology Psychiatry
DX: F20.9 Schizophrenia, unspecified (principal); F12.90 Cannabis use, unspecified, uncomplicated; F32.9 Major depressive disorder, single episode, unspecified; F17.210 Nicotine dependence, cigarettes, uncomplicated
CPT/HCPCS: 12345; 36415; 80053; 80307; 85025; 99284; A9270